=== PATIENT | female | born 1935 | race Caucasian/White ===

== ENCOUNTER → 2016-08-24 | Outpatient (CLI) | payer BC ==
[2016-08-24 13:45] LABS: BLOOD UREA NITROGEN 24 mg/dl (7-18); BUN/CREATININE RATIO 30.1 (10-20); CALCIUM 9.2 mg/dl (8.5-10.1); CARBON DIOXIDE 26 mmol/L (21-32); CHLORIDE 110 mmol/L (98-107); CREATININE 0.79 mg/dl (0.60-1.20); GLUCOSE 133 mg/dl (70-99); POTASSIUM 3.8 mmol/L (3.5-5.1); SODIUM 143 mmol/L (136-145)
[2016-08-24 14:04] LABS: RATIO 10.9 mcg/mg (0-30.0)
[2016-08-24 14:24] LABS: ESTIMATED AVERAGE GLUCOSE 131 mg/dl; HA1C FLAG Normal (Normal)
== END | disposition home or self-care (01) ==
LOC: C.LABPVFM 10:02
PROVIDERS: ATTEND Internal Medicine
DX: E11.9 Type 2 diabetes mellitus without complications (principal)

== ENCOUNTER → 2016-12-20 | Outpatient (CLI) | payer BC ==
[2016-12-20 13:11] LABS: ESTIMATED AVERAGE GLUCOSE 143 mg/dl; HA1C FLAG Normal (Normal)
[2016-12-20 13:19] LABS: ALT/SGPT 26 U/L (12-78); AST/SGOT 25 U/L (15-37); BLOOD UREA NITROGEN 22 mg/dl (7-18); BUN/CREATININE RATIO 24.1 (10-20); CALCIUM 9.5 mg/dl (8.5-10.1); CARBON DIOXIDE 27 mmol/L (21-32); CHLORIDE 108 mmol/L (98-107); CHOLESTEROL 225 mg/dl (0-200); CREATININE 0.92 mg/dl (0.60-1.20); GLUCOSE 120 mg/dl (70-99); POTASSIUM 4.1 mmol/L (3.5-5.1); SODIUM 142 mmol/L (136-145); TRIGLYCERIDES 89 mg/dl (0-150); VERY LOW DENSITY LIPOPROT CALC 18 mg/dl
[2016-12-20 13:22] LABS: CHOLESTEROL/HDL RATIO 2.4; HDL CHOLESTEROL 92 mg/dl; LDL CHOLESTEROL CALCULATED 115 mg/dl
== END | disposition home or self-care (01) ==
LOC: C.LABPVFM 09:23
PROVIDERS: ATTEND Internal Medicine
DX: E55.9 Vitamin D deficiency, unspecified (principal); E78.5 Hyperlipidemia, unspecified; E11.9 Type 2 diabetes mellitus without complications

== ENCOUNTER → 2017-01-22 | Outpatient (CLI) | payer BC ==
--- NOTE | 2017-01-22 10:25 | DIAGNOSTIC IMAGING REPORT ---
ULTRASOUND RIGHT UPPER QUADRANT ABDOMEN CLINICAL HISTORY: Epigastric abdominal pain. Bloating. COMPARISON STUDY: Abdominal ultrasound dated 05/26/2015. TECHNIQUE: Real-time, grayscale, and color flow sonography of the right upper quadrant of the abdomen was performed. Images are reviewed in the transverse and longitudinal planes. FINDINGS: Liver: The liver is normal in size and echotexture. There is no intrahepatic biliary ductal dilatation. The main portal vein is patent. Gallbladder: There are numerous calcified gallstones. There is no gallbladder wall thickening or pericholecystic fluid. A sonographic Mcelroy's sign is reportedly absent. The common bile duct measures up to 0.4 cm in diameter. Pancreas: Visualized portions of the pancreatic head and body are normal in appearance. The splenic vein is patent. Right kidney: Survey images of the right kidney demonstrate normal size and echotexture. There is no hydronephrosis. Ascites: None. IMPRESSION: Cholelithiasis without sonographic evidence of acute cholecystitis. Electronically signed by: Bo Das M.D. 01/22/2017 10:23 AM Dictated Date/Time: 01/22/2017 10:22 AM
== END | disposition home or self-care (01) ==
LOC: C.ULTR 09:04
PROVIDERS: ATTEND Internal Medicine
DX: R14.0 Abdominal distension (gaseous) (principal); R10.13 Epigastric pain

== ENCOUNTER → 2017-04-26 | Outpatient (CLI) | payer BC ==
[2017-04-26 12:28] LABS: MEAN CELL VOLUME 91.7 fL (80-100); MEAN CORPUSCULAR HEMOGLOBIN 30.4 pg (25-34); MEAN CORPUSCULAR HGB CONC 33.2 g/dl (32-36); PLATELET COUNT 165 K/uL (130-400); WHITE BLOOD COUNT 5.62 K/uL (4.8-10.8)
[2017-04-26 13:46] LABS: ESTIMATED AVERAGE GLUCOSE 137 mg/dl; HA1C FLAG Normal (Normal)
[2017-04-26 13:51] LABS: BLOOD UREA NITROGEN 19 mg/dl (7-18); BUN/CREATININE RATIO 21.6 (10-20); CALCIUM 9.2 mg/dl (8.5-10.1); CARBON DIOXIDE 25 mmol/L (21-32); CHLORIDE 106 mmol/L (98-107); CREATININE 0.87 mg/dl (0.60-1.20); GLUCOSE 130 mg/dl (70-99); POTASSIUM 4.2 mmol/L (3.5-5.1); SODIUM 140 mmol/L (136-145)
== END | disposition home or self-care (01) ==
LOC: C.LABPVFM 09:29
PROVIDERS: ATTEND Internal Medicine
DX: E11.9 Type 2 diabetes mellitus without complications (principal); K44.9 Diaphragmatic hernia without obstruction or gangrene

== ENCOUNTER → 2017-08-24 | Outpatient (CLI) | payer BC ==
[2017-08-24 12:48] LABS: ALT/SGPT 29 U/L (12-78); AST/SGOT 27 U/L (15-37); BLOOD UREA NITROGEN 17 mg/dl (7-18); CALCIUM 9.3 mg/dl (8.5-10.1); CARBON DIOXIDE 27 mmol/L (21-32); CREATININE 0.92 mg/dl (0.60-1.20); GLUCOSE 120 mg/dl (70-99); POTASSIUM 3.6 mmol/L (3.5-5.1); SODIUM 140 mmol/L (136-145)
[2017-08-24 12:51] LABS: CHOLESTEROL 245 mg/dl (0-200); LDL CHOLESTEROL CALCULATED 126 mg/dl
== END | disposition home or self-care (01) ==
LOC: C.LABPVFM 10:23
PROVIDERS: ATTEND Internal Medicine
DX: E11.9 Type 2 diabetes mellitus without complications (principal); E55.9 Vitamin D deficiency, unspecified; E78.5 Hyperlipidemia, unspecified

== ENCOUNTER 2022-01-24 13:17 | Inpatient (IN) ==
[2022-01-24] MEDS ORDERED: SODIUM CHLORIDE 0.9% 1000ML 1,000 ML IV SCH (13:53)
--- NOTE | 2022-01-24 14:07 | Emergency Department Note ---
Impression & Plan CVA (cerebral vascular accident), Atrial fibrillation, Hypomagnesemia, Rhabdomyolysis, Elevated troponin, Orbital floor fracture, Maxillary sinus fracture, Multiple fractures of ribs of right side ED Provider Note NAME: REDDY RIVAS AGE: 86 SEX: F ARRIVES VIA: Ambulance INFORMANT: Patient's Daughter ED PROVIDER(S): Anthony Lomeli MD CHIEF COMPLAINT: Stroke symptoms, Trauma. PLAN: Disposition: Admit MEDICAL DECISION MAKING: The patient is a pleasant 86-year-old woman with a past medical history of diabetes, osteoporosis, hyperlipidemia who presents to the emergency department via EMS after friends had found her in the home having suffered a fall and noted to have inability to speak and right facial droop with numerous contusions of her face and extremities. The patient's daughter arrived to the bedside and describes that she had last spoken to her mother Sunday and was attempting to call her this morning but she was not answering and so asked friends to go check on her. They were unable to open the door and went to her bedroom window and after knocking to awake the patient she was able to make it to the window to unlock it where she was then found. Her daughter reports that she did have a fall last week where she fell onto her left hand and hip. She was able to ambulate with a cane afterwards and so did not seek medical attention but had noted that movement of her left leg was impaired from baseline. On arrival to the emergency department the patient is awake and appears to follow most commands but is unclear if she understands others. The patient arrived to emergency department afebrile with heart in the 100s and blood pressure 140s/90s with O2 saturation 98% on room air. She has resolving ecchymosis of the right periorbital region without ocular proptosis. Pupils are equal and reactive. She has a noticeable right lower facial droop. She has overt expressive aphasia with only garbled speech. She does follow commands to attempt to raise extremities though appears to have difficulty raising all extremities equally. Ecchymosis of the right shoulder with mild tenderness of the proximal upper arm. There is no midline CTL spine tenderness to palpation or step-offs. Attempting to communicate with the patient with yes or no questions it did seem that she indicated that she fell Sunday. Given her last known well was Sunday with possible symptom onset Sunday no indication for stroke alert however her evaluation was expedited with CT imaging. EKG demonstrates atrial fibrillation, suspected new onset, no overt acute ischemia. CXR with vascular congestion without focal infiltrates. WBC, H/H and platelets within normal limits. Chemistry without metabolic acidosis. BUN/creatinine> 30 consistent with the patient's clinically dry appearance. Lactic acid 1.8, within normal limits. Magnesium 1.6 with repletion provided. Total bilirubin 2.1 with direct bilirubin 0.3, nonspecific. AST 51 and LFTs otherwise unremarkable. CPK 1500. Initial high-sensitivity troponin 345 nonspecific. UA without convincing evidence of infection. COVID- 19 RNA, NAAT test was negative. CT head and CTA head and neck were performed and demonstrates moderate stenosis of the M2 segment of the left MCA. Old small bilateral cerebellar lacunar infarcts noted. CT of the face shows extensive facial fractures including the right superior, lateral and inferior orbital rangel with orbital floor fracture of 3 mm of depression without extraocular muscle entrapment. Additional fractures of anterior, posterior and medial rangel of the right maxillary sinus with moderate layering hemorrhage within the right maxillary sinus. Acute nondisplaced fracture of the right zygomatic arch. CT of the chest demonstrates mildly displaced fracture of the right third rib. Pelvis additionally shows right anterior third through fifth rib fractures. Given extensive facial fractures prophylactic antibiotics/IV Unasyn administered. Case was discussed with Dr. Burnett, [facility] hospitalist, who will evaluate the patient for admission. Triage Nursing notes reviewed and agree them. Prior medical records reviewed Vital Signs: reviewed and remarkable for no significant abnormalities Differential diagnosis: Infection, dehydration, metabolic abnormality, hypo/hyperglycemia, electrolyte disturbance, anemia, hypoxia, cardiac sources, intracerebral event, toxicologic, neurologic, as well as other pathologies. ER treatment provided: See below. Diagnostics interpreted by me: ECG: Atrial fibrillation, 110 bpm, LVH, no overt ST elevation, QTc 430, QRS 86. Cardiac Monitoring: An order for continuous cardiac monitoring was placed and demonstrated Atrial fibrillation, 110 bpm, no ectopy. Laboratory studies: See below Imaging studies: See below Consultation(s): Case was discussed with Dr. Burnett, [facility] hospitalist, who will evaluate the patient for admission. HPI: The patient is a pleasant 86-year-old woman with a past medical history of diabetes, osteoporosis, hyperlipidemia who presents to the emergency department via EMS after friends had found her in the home having suffered a fall and noted to have inability to speak and right facial droop with numerous contusions of her face and extremities. The patient's daughter arrived to the bedside and describes that she had last spoken to her mother Sunday afternoon and was attempting to call her this morning but she was not answering and so asked friends to go check on her. They were unable to open the door and went to her bedroom window and after knocking to awake the patient she was able to make it to the window to unlock it where she was then found. Her daughter reports that she did have a fall last week where she fell onto her left hand and hip. She was able to ambulate with a cane afterwards and so did not seek medical attention but had noted that movement of her left leg was impaired from baseline. On arrival to the emergency department the patient is awake and appears to follow most commands but is unclear if she understands others. ROS: See above HPI for pertinent positives & negatives. A total of 10 systems reviewed and were otherwise negative. VITALS:See Below PHYSICAL EXAMINATION: GENERAL: Awake, alert, uncomfortable-appearing, in no distress HENT: Normocephalic,resolving ecchymosis of the right periorbital region without ocular proptosis. Oropharynx unremarkable. EYES: Normal conjunctiva. Sclera non-icteric. NECK: Supple. No nuchal rigidity. FROM. No JVD. RESPIRATORY: Clear to auscultation. CARDIAC: Tachycardic rate, irregular rhythm. Extremities warm and well perfused. Pulses equal. ABDOMEN: Soft, non-distended. No tenderness to palpation. No rebound or guarding. No masses. RECTAL: Deferred. MUSCULOSKELETAL: Chest examination reveals no tenderness. The back is symmetrical on inspection without obvious abnormality. There is no CVA tenderness to palpation. No joint edema. LOWER EXTREMITIES: Calves are equal size bilaterally and non-tender. Ecchymosis of the right shoulder with mild tenderness of the proximal upper arm. There is no midline CTL spine tenderness to palpation or step-offs. NEURO: Pupils are equal and reactive. She has a noticeable right lower facial droop. She has overt expressive aphasia with only garbled speech. She does follow commands to attempt to raise extremities though appears to have dif ficulty raising all extremities equally. SKIN: No rash or jaundice noted. ED COURSE: Critical Care: I have personally spent greater than 35 minutes of critical care time in the direct management of this patient. This includes bedside care, interpretation of diagnostic studies, and testing, discussion with consultants, patient, and family members, and other required patient management activities. This 35 minutes is in excess of all separately billable procedures. Anthony Lomeli MD Past Med/Surg History Medical History Acquired deviated nasal septum Atrial fibrillation Cerebral atherosclerosis Diabetes mellitus Hiatal hernia Hyperlipidemia Osteoporosis Urinary incontinence Vertebral artery stenosis Vitamin D deficiency Surgical History History of dilation and curettage Hx of cataract surgery Family History Unknown Gastric cancer Son Hodgkin's lymphoma Mother History of malignant neoplasm Father History of malignant neoplasm Other Cancer Denies family history of Ovarian cancer Prostate cancer Myocardial infarction Breast cancer Lung cancer Colorectal cancer Stroke Social History Smoking Status: Never smoker Second Hand Exposure: No; Do You Dip or Chew Tobacco: No; Hx Alcohol Use: No Hx Substance Use: No Preferred Language: Belarusian Communication Ability: Impaired Visual Impairment: No Limitations Hearing Ability: Hard of Hearing Event Marketing Specialist Required: No Beliefs That Will Affect Care: None marital status: / Current Living Situation: Alone current occupational status: retired Other Information That Helps Us Care for You: No Feels Safe at Home: Yes Safety Concerns: Feels Safe At This Time Childhood Exposure to Second-Hand Smoke: No Physical Activity Frequency: Does not Exercise Seatbelt Use: sometimes Assistive Devices: Cane, Denture - Upper and Hearing Aid - Bilateral Allergies Allergies Allergy/AdvReac Type Severity Reaction Status Date / Time No Known Drug Allergies Allergy Verified 01/24/22 15:42 Home Meds Home Medications Medication Instructions Recorded Confirmed calcium carbonate 600 mg-vitamin 1 tab PO BID 01/14/19 01/24/22 D3 10 mcg (400 unit) tablet (Calcium 600 + D(3)) cholecalciferol (vitamin D3) 25 3,000 units PO DAILY 01/14/19 01/24/22 mcg (1,000 unit) capsule cyanocobalamin (vitamin B-12) 100 100 mcg PO DAILY 01/14/19 01/24/22 mcg tablet multivitamin,tx-minerals 1 tab PO DAILY 01/14/19 01/24/22 Previous Rx's Medication Instructions Recorded glimepiride 1 mg tablet 1 mg PO BID #180 tabs 12/22/21 Results & Data (ED) Vital Signs Vital Signs - 24 hr 01/24/22 13:31 01/24/22 14:08 01/24/22 14:08 Temperature 36.8 C Temperature Source Oral Pulse Rate 104 H Pulse Rate [Apical] 104 H Pulse Rhythm Regular Pulse Rhythm [Apical] Irregular Pulse Strength Normal Respiratory Rate 18 18 Respiratory Effort / Characteristics Non-Labored Spontaneous Non-Labored Respiratory Depth Normal Normal Respiratory Pattern Regular Blood Pressure 142/93 H Blood Pressure [Right Arm] 137/85 Blood Pressure Mean 109 Blood Pressure Mean [Right Arm] 102 Blood Pressure Position Lying Pulse Oximetry 98 96 96 Oxygen Delivery Method Room Air Room Air Room Air Sepsis Recent Fever Within 48 Hours No Sepsis New/Unexplained Change in Mental Status N/A Sepsis Action Taken by Nursing No Action Required 01/24/22 14:11 01/24/22 14:20 01/24/22 14:45 Temperature Temperature Source Pulse Rate 113 H 109 H Pulse Rate [Apical] Pulse Rhythm Pulse Rhythm [Apical] Pulse Strength Respiratory Rate 30 H 21 Respiratory Effort / Characteristics Respiratory Depth Respiratory Pattern Blood Pressure 142/90 H Blood Pressure [Right Arm] Blood Pressure Mean 107 Blood Pressure Mean [Right Arm] Blood Pressure Position Pulse Oximetry Oxygen Delivery Method Sepsis Recent Fever Within 48 Hours Sepsis New/Unexplained Change in Mental Status Sepsis Action Taken by Nursing 01/24/22 14:45 01/24/22 14:50 01/24/22 15:00 Temperature Temperature Source Pulse Rate 110 H 100 H Pulse Rate [Apical] Pulse Rhythm Pulse Rhythm [Apical] Pulse Strength Respiratory Rate 22 Respiratory Effort / Characteristics Respiratory Depth Respiratory Pattern Blood Pressure 139/80 Blood Pressure [Right Arm] Blood Pressure Mean 99 Blood Pressure Mean [Right Arm] Blood Pressure Position Pulse Oximetry Oxygen Delivery Method Sepsis Recent Fever Within 48 Hours Sepsis New/Unexplained Change in Mental Status Sepsis Action Taken by Nursing 01/24/22 15:00 01/24/22 15:10 01/24/22 15:20 Temperature Temperature Source Pulse Rate 104 H 100 H 106 H Pulse Rate [Apical] Pulse Rhythm Pulse Rhythm [Apical] Pulse Strength Respiratory Rate 15 19 16 Respiratory Effort / Characteristics Respiratory Depth Respiratory Pattern Blood Pressure Blood Pressure [Right Arm] Blood Pressure Mean Blood Pressure Mean [Right Arm] Blood Pressure Position Pulse Oximetry Oxygen Delivery Method Sepsis Recent Fever Within 48 Hours Sepsis New/Unexplained Change in Mental Status Sepsis Action Taken by Nursing 01/24/22 15:30 01/24/22 15:30 01/24/22 15:40 Temperature Temperature Source Pulse Rate 98 H 108 H Pulse Rate [Apical] Pulse Rhythm Pulse Rhythm [Apical] Pulse Strength Respiratory Rate 19 25 H Respiratory Effort / Characteristics Respiratory Depth Respiratory Pattern Blood Pressure 129/60 Blood Pressure [Right Arm] Blood Pressure Mean 83 Blood Pressure Mean [Right Arm] Blood Pressure Position Pulse Oximetry Oxygen Delivery Method Sepsis Recent Fever Within 48 Hours Sepsis New/Unexplained Change in Mental Status Sepsis Action Taken by Nursing 01/24/22 15:50 01/24/22 16:00 01/24/22 16:10 Temperature Temperature Source Pulse Rate 108 H 113 H 101 H Pulse Rate [Apical] Pulse Rhythm Pulse Rhythm [Apical] Pulse Strength Respiratory Rate 17 16 23 Respiratory Effort / Characteristics Respiratory Depth Respiratory Pattern Blood Pressure Blood Pressure [Right Arm] Blood Pressure Mean Blood Pressure Mean [Right Arm] Blood Pressure Position Pulse Oximetry Oxygen Delivery Method Sepsis Recent Fever Within 48 Hours Sepsis New/Unexplained Change in Mental Status Sepsis Action Taken by Nursing Laboratory Data Attestation: I reviewed the patient's lab results. Result diagrams: 01/24/22 13:52 01/24/22 13:52 Lab Results 01/24/22 01/24/22 01/24/22 Range/Units 13:52 13:52 13:52 WBC 9.42 (4.8-10.8) K/ul RBC 4.19 (3.93-5.22) M/uL Hgb 12.3 (12.0-16.0) g/dl POC Hgb (12.0-16.0) g/dl Hct 36.9 (34.1-44.9) % POC Hct (37-47) % MCV 88.1 (80.0-100.0) fL MCH 29.4 (25.0-34.0) pg MCHC 33.3 (32.0-36.0) g/dL RDW Std Deviation 42.2 (36.4-46.3) fL RDW Coeff of Paco 13.2 (11.5-14.5) % Plt Count 150 (130-400) K/uL MPV 9.7 (9.4-12.3) fL Immature Gran % (Auto) 0.4 % Neut % (Auto) 82.3 % Lymph % (Auto) 9.1 % [place] % (Auto) 8.1 % Eos % (Auto) 0.0 % Baso % (Auto) 0.1 % Neut # (Auto) 7.75 H (1.4-6.5) K/uL Lymph # (Auto) 0.86 L (1.2-3.4) K/uL [place] # (Auto) 0.76 (0.24-0.82) K/uL Eos # (Auto) 0.00 (0-0.50) K/uL Baso # (Auto) 0.01 (0-0.2) K/uL Immature Gran # (Auto) 0.04 H (0.00-0.02) K/uL PT 11.5 (9.0-12.0) Seconds INR 1.1 (0.9-1.1) APTT 22.5 (21.0-31.0) Seconds PTT Ratio 0.8 POC Sodium (135-144) mmol/L Sodium 139 (136-145) mmol/L POC Potassium (3.3-5.0) mmol/L Potassium 3.5 (3.5-5.1) mmol/L POC Chloride (101-112) mmol/L Chloride 103 (98-107) mmol/L Carbon Dioxide 26 (21-32) mmol/L POC Total CO2 (24-31) mmol/L Anion Gap 10 (3-11) POC Anion Gap (16-25) mmol/L POC BUN (7-18) mg/dl BUN 19 (6-23) mg/dl Creatinine 0.54 L (0.6-1.2) mg/dl POC Creatinine (0.6-1.3) mg/dl Est Cr Clr Drug Dosing 62.2 ml/min Est GFR ( Amer) 97.6 ml/min Est GFR (Non-Af Amer) 84.3 ml/min BUN/Creatinine Ratio 35.2 H (10-20) Glucose 142 H (70-99(Fasting)) mg/dl POC Glucose (other) (70-99) mg/dl Lactate (0.4-2.0) mmol/L Calcium 9.7 (8.5-10.1) mg/dl POC Ioniz Calcium Hailee (1.12-1.32) mmol/l Phosphorus (2.5-4.9) mg/dl Magnesium 1.6 L (1.7-2.4) mg/dl Total Bilirubin 2.1 H (0.2-1.0) mg/dl Direct Bilirubin (0-0.2) mg/dl AST 51 H (13-39) U/L ALT 18 (7-52) U/L Alkaline Phosphatase 57 (34-104) U/L Total Creatine Kinase (26-192) U/L Troponin I High Sens 345.4 H* (0-14) pg/ml Total Protein 7.3 (6.0-8.3) gm/dl Albumin 4.1 (3.4-5.0) gm/dl Globulin 3.2 (2.5-4.0) gm/dl Albumin/Globulin Ratio 1.3 (0.9-2) SARS-CoV-2, RNA, NAAT (NEGATIVE) Blood Type Antibody Screen 01/24/22 01/24/22 01/24/22 Range/Units 13:52 13:52 14:00 WBC (4.8-10.8) K/ul RBC (3.93-5.22) M/uL Hgb (12.0-16.0) g/dl POC Hgb 12.2 (12.0-16.0) g/dl Hct (34.1-44.9) % POC Hct 36 L (37-47) % MCV (80.0-100.0) fL MCH (25.0-34.0) pg MCHC (32.0-36.0) g/dL RDW Std Deviation (36.4-46.3) fL RDW Coeff of Paco (11.5-14.5) % Plt Count (130-400) K/uL MPV (9.4-12.3) fL Immature Gran % (Auto) % Neut % (Auto) % Lymph % (Auto) % [place] % (Auto) % Eos % (Auto) % Baso % (Auto) % Neut # (Auto) (1.4-6.5) K/uL Lymph # (Auto) (1.2-3.4) K/uL [place] # (Auto) (0.24-0.82) K/uL Eos # (Auto) (0-0.50) K/uL Baso # (Auto) (0-0.2) K/uL Immature Gran # (Auto) (0.00-0.02) K/uL PT (9.0-12.0) Seconds INR (0.9-1.1) APTT (21.0-31.0) Seconds PTT Ratio POC Sodium 141 (135-144) mmol/L Sodium (136-145) mmol/L POC Potassium 3.5 (3.3-5.0) mmol/L Potassium (3.5-5.1) mmol/L POC Chloride 103 (101-112) mmol/L Chloride (98-107) mmol/L Carbon Dioxide (21-32) mmol/L POC Total CO2 27 (24-31) mmol/L Anion Gap (3-11) POC Anion Gap 15.0 L (16-25) mmol/L POC BUN 21 H (7-18) mg/dl BUN (6-23) mg/dl Creatinine (0.6-1.2) mg/dl POC Creatinine 0.5 L (0.6-1.3) mg/dl Est Cr Clr Drug Dosing ml/min Est GFR ( Amer) ml/min Est GFR (Non-Af Amer) ml/min BUN/Creatinine Ratio (10-20) Glucose (70-99(Fasting)) mg/dl POC Glucose (other) 148 H (70-99) mg/dl Lactate (0.4-2.0) mmol/L Calcium (8.5-10.1) mg/dl POC Ioniz Calcium Hailee 1.20 (1.12-1.32) mmol/l Phosphorus 2.4 L (2.5-4.9) mg/dl Magnesium (1.7-2.4) mg/dl Total Bilirubin (0.2-1.0) mg/dl Direct Bilirubin 0.3 H (0-0.2) mg/dl AST (13-39) U/L ALT (7-52) U/L Alkaline Phosphatase (34-104) U/L Total Creatine Kinase 1510 H (26-192) U/L Troponin I High Sens (0-14) pg/ml Total Protein (6.0-8.3) gm/dl Albumin (3.4-5.0) gm/dl Globulin (2.5-4.0) gm/dl Albumin/Globulin Ratio (0.9-2) SARS-CoV-2, RNA, NAAT (NEGATIVE) Blood Type Antibody Screen 01/24/22 01/24/22 01/24/22 Range/Units 14:05 14:05 14:05 WBC (4.8-10.8) K/ul RBC (3.93-5.22) M/uL Hgb (12.0-16.0) g/dl POC Hgb (12.0-16.0) g/dl Hct (34.1-44.9) % POC Hct (37-47) % MCV (80.0-100.0) fL MCH (25.0-34.0) pg MCHC (32.0-36.0) g/dL RDW Std Deviation (36.4-46.3) fL RDW Coeff of Paco (11.5-14.5) % Plt Count (130-400) K/uL MPV (9.4-12.3) fL Immature Gran % (Auto) % Neut % (Auto) % Lymph % (Auto) % [place] % (Auto) % Eos % (Auto) % Baso % (Auto) % Neut # (Auto) (1.4-6.5) K/uL Lymph # (Auto) (1.2-3.4) K/uL [place] # (Auto) (0.24-0.82) K/uL Eos # (Auto) (0-0.50) K/uL Baso # (Auto) (0-0.2) K/uL Immature Gran # (Auto) (0.00-0.02) K/uL PT (9.0-12.0) Seconds INR (0.9-1.1) APTT (21.0-31.0) Seconds PTT Ratio POC Sodium (135-144) mmol/L Sodium (136-145) mmol/L POC Potassium (3.3-5.0) mmol/L Potassium (3.5-5.1) mmol/L POC Chloride (101-112) mmol/L Chloride (98-107) mmol/L Carbon Dioxide (21-32) mmol/L POC Total CO2 (24-31) mmol/L Anion Gap (3-11) POC Anion Gap (16-25) mmol/L POC BUN (7-18) mg/dl BUN (6-23) mg/dl Creatinine (0.6-1.2) mg/dl POC Creatinine (0.6-1.3) mg/dl Est Cr Clr Drug Dosing ml/min Est GFR ( Amer) ml/min Est GFR (Non-Af Amer) ml/min BUN/Creatinine Ratio (10-20) Glucose (70-99(Fasting)) mg/dl POC Glucose (other) (70-99) mg/dl Lactate 1.8 (0.4-2.0) mmol/L Calcium (8.5-10.1) mg/dl POC Ioniz Calcium Hailee (1.12-1.32) mmol/l Phosphorus (2.5-4.9) mg/dl Magnesium (1.7-2.4) mg/dl Total Bilirubin (0.2-1.0) mg/dl Direct Bilirubin (0-0.2) mg/dl AST (13-39) U/L ALT (7-52) U/L Alkaline Phosphatase (34-104) U/L Total Creatine Kinase (26-192) U/L Troponin I High Sens (0-14) pg/ml Total Protein (6.0-8.3) gm/dl Albumin (3.4-5.0) gm/dl Globulin (2.5-4.0) gm/dl Albumin/Globulin Ratio (0.9-2) SARS-CoV-2, RNA, NAAT NEGATIVE (NEGATIVE) Blood Type A Positive Antibody Screen NEGATIVE Administered Medications Sodium Chloride (Nss 1000ml) 1,000 mls @ 100 mls/hr IV .Q10H MENDY Stop: 01/25/22 17:13 Last Admin: 01/24/22 21:44 Dose: 100 mls/hr Documented By: GEORGETTE Insulin Aspart (Insulin Aspart Per Unit) 0 units SC ACHS MENDY Stop: 02/23/22 21:13 Last Admin: 01/24/22 22:03 Dose: Not Given Documented By: GEORGETTE Discontinued Medications Gadobutrol (Gadobutrol 65ml Vial) 6 ml IV ONCE ONE Stop: 01/24/22 19:33 Last Admin: 01/24/22 19:33 Dose: 6 ml Documented By: AF Sodium Chloride (Nss 1000ml) 1,000 mls @ 999 mls/hr IV .Q1H1M MENDY Stop: 01/24/22 14:53 Last Infusion: 01/24/22 18:22 Dose: 0 mls/hr Documented By: Admin: 01/24/22 15:51 Dose: 999 mls/hr Documented By: PEARL Magnesium Sulfate/Dextrose (Magnesium Sulfate / D5w) 1 gm in 100 mls @ 100 mls/hr IV Q1H MENDY Stop: 01/24/22 17:16 Last Infusion: 01/24/22 21:27 Dose: 0 mls/hr Documented By: Admin: 01/24/22 18:13 Dose: 100 mls/hr Documented By: Infusion: 01/24/22 18:10 Dose: 100 mls/hr Documented By: Admin: 01/24/22 17:10 Dose: 100 mls/hr Documented By: PEARL Sodium Chloride (Nss 1000ml) 1,000 mls @ 999 mls/hr IV .Q1H1M ONE Stop: 01/24/22 16:17 Last Infusion: 01/24/22 18:20 Dose: 0 mls/hr Documented By: Admin: 01/24/22 17:11 Dose: 999 mls/hr Documented By: PEARL Ampicillin Sodium/Sulbactam Sodium 3,000 mg/ Sodium Chloride 108 mls @ 200 mls/hr IV NOW STA; Protocol Stop: 01/24/22 16:29 Last Infusion: 01/24/22 21:28 Dose: 0 mls/hr Documented By: Admin: 01/24/22 18:13 Dose: 200 mls/hr Documented By: TYSON Acetaminophen (Ofirmev) 1,000 mg in 100 mls @ 400 mls/hr IV NOW STA Stop: 01/24/22 16:12 Last Infusion: 01/24/22 18:20 Dose: 0 mls/hr Documented By: Admin: 01/24/22 17:11 Dose: 400 mls/hr Documented By: PEARL Ioversol (Optiray 300 500ml) 120 ml IV ONCE ONE Stop: 01/24/22 14:41 Last Admin: 01/24/22 14:40 Dose: 120 ml Documented By: GEMINI Lidocaine (Lidocaine 5% 1 Patch) 1 patch TD NOW STA Stop: 01/24/22 16:09 Last Admin: 01/24/22 18:12 Dose: 1 patch Documented By: TW Miscellaneous (Remove Lidoderm Patch) 1 each N/A DAILY@2100 MENDY Stop: 02/23/22 20:59 Last Admin: 01/24/22 22:03 Dose: 1 each Documented By: GEORGETTE Imaging Data Radiologist's Impression: Abdomen/Pelvis CT 01/24/22 13:[address] WITH IV CONTRAST CT DOSE: HISTORY: Generalized abdominal pain. Fall. TECHNIQUE: Multiaxial CT images of the abdomen and pelvis were performed following the use of intravenous contrast. A dose lowering technique was utilized adhering to the principles of ALARA. COMPARISON STUDY: Abdomen and pelvis CT 02/11/2020. FINDINGS: Please refer to the same day chest CT for further evaluation of the lung bases. No pneumoperitoneum. No pneumatosis. Partially visualized nondisplaced right anterior third through fifth rib fractures. The heart is enlarged. There is a large hiatus hernia containing the majority the stomach. Small fat-containing bilateral inguinal hernias. Trace pelvic free fluid. The bladder, uterus, bilateral adnexa are unremarkable. No pelvic lymphadenopathy. Mild hepatic steatosis. The gallbladder, pancreas, spleen, and adrenal glands are unremarkable. There are few small bilateral renal hypodense lesions, unchanged. These likely represent cysts. No hydronephrosis. The main portal vein is patent. No retroperitoneal lymphadenopathy or hematoma. Colonic diverticulosis. No evidence for acute diverticulitis. No bowel wall thickening or obstruction. Normal appendix. IMPRESSION: 1. Right anterior third through fifth rib fractures. 2. Otherwise, no acute traumatic process within the abdomen or pelvis. 3. Large hiatus hernia, unchanged. 4. Colonic diverticulosis. No evidence for acute diverticulitis. ACT 112: Negative or not required by law. Electronically signed by: Ronan Simmons M.D. 01/24/2022 3:[address] 01/24/22 13:49 CT OF THE CHEST WITH IV CONTRAST CLINICAL HISTORY: Chest pain following fall. COMPARISON STUDY: Chest radiograph performed earlier today. TECHNIQUE: Following IV administration of 120 mL of Optiray, helical axial images of the chest were obtained. Sagittal and coronal reconstructions were viewed as well as maximal intensity projections on an independent 3-D workstation. Automated exposure control was utilized for the study. A dose lowering technique was utilized adhering to the principles of ALARA. FINDINGS: There is no evidence for traumatic injury to the thoracic aorta. Moderate cardiomegaly is noted. There is no mediastinal hematoma. A hiatal hernia with partially intrathoracic stomach is noted. Lungs are suboptimally assessed due to respiratory motion. Groundglass opacities favor atelectasis. There is no pulmonary contusion. No consolidation to suggest pneumonia. There is a calcified granuloma within the right middle lobe. Note is made of a mildly displaced fracture of the anterior right third rib which is likely acute. There is no pneumothorax or pleural effusion. No acute thoracic spine fractures are present. Abdomen and pelvis CT will be reported separately. IMPRESSION: 1. Mildly displaced fracture of the anterior right third rib which is likely a cute. No pneumothorax. 2. No additional acute traumatic findings within the chest. 3. Cardiomegaly. 4. Hiatal hernia with partially intrathoracic stomach. ACT 112: Negative or not required by law. Electronically signed by: Randy Montemayor M.D. 01/24/2022 2:58 PM Chest X-Ray 01/24/22 13:49 XR chest 1V portable CLINICAL HISTORY: Stroke Like Symptoms. COMPARISON STUDY: No previous studies for comparison. FINDINGS: There is no pneumothorax or pleural effusion. Cardiomegaly is noted. There is pulmonary vascular congestion. There is no consolidation to suggest pneumonia. A large hiatal hernia is noted. IMPRESSION: 1. Cardiomegaly with pulmonary vascular congestion. 2. Hiatal hernia. ACT 112: Negative or not required by law. Electronically signed by: Randy Montemayor M.D. 01/24/2022 2:[address] 01/24/22 13:[address] DOSE: HISTORY: Right-sided facial droop. Stroke Like Symptoms TECHNIQUE: Multiaxial CT images of the head were performed without the use of intravenous contrast. Automated exposure control was utilized for this study. A dose lowering technique was utilized adhering to the principles of ALARA. Comparison: None. Findings: Hemorrhage within the right maxillary sinus. There is right periorbital/facial soft tissue swelling. Mildly displaced right zygomatic omaxillary complex fracture which is better appreciated on the same day maxillofacial CT. Subtle asymmetric lucency within the left frontal bone is noted. This is of doubtful clinical significance. The mastoid air cells are clear. Mild motion artifact. The ventricles and sulci demonstrate mild age-r elated involutional changes. Periventricular white matter hypodensity likely represents microvascular ischemic change. There is no mass, hematoma, midline shift, acute infarct. There are old small bilateral cerebellar lacunar infarcts noted. Impression: 1. No acute intracranial abnormality. 2. Right periorbital/facial soft tissue swelling. 3. Please refer to same day maxillofacial CT for further evaluation of the right facial fractures. ACT 112: Negative or not required by law. Electronically signed by: Ronan Simmons M.D. 01/24/2022 3:05 PM Head CTA 01/24/22 13:49 CT ANGIOGRAM OF THE BRAIN CLINICAL HISTORY: Strokelike symptoms. COMPARISON STUDY: Unenhanced CT of the brain performed concurrently on 01/24/2022. TECHNIQUE: Following the IV administration of 120 cc of Optiray 300, CT angiogram of the brain was performed from the skull base to the vertex. Images are reviewed in the axial, sagittal, and coronal planes. 3-D MIPS images are created and assessed. IV contrast was administered without complication. A dose lowering technique was utilized adhering to the principles of ALARA. FINDINGS: Brain parenchyma: There is age-related involutional change noting mild subcortical and periventricular microangiopathic disease. There is no evidence of hemorrhage, mass effect, or acute territorial ischemia noting angiographic phase technique. There is no evidence of enhancing mass lesion on the angiogram phase images. No extra-axial fluid collection is seen. Khan-white matter differentiation is preserved. Ventricles, sulci, and cisterns: Prominent secondary to involutional change. CT angiogram of the brain: There is atherosclerotic calcification of the cavernous carotid arteries. The internal carotid arteries are widely patent, as are the anterior and middle cerebral arteries. The basilar artery is diminutive and there are large bilateral posterior communicating arteries. The vertebrobasilar system and posterior cerebral arteries are widely patent. The le ft vertebral artery is dominant. There is moderate stenosis of the M2 segment of the left middle cerebral artery. This is best seen on coronal dimension #29. No aneurysm or focal vessel cutoff is identified throughout the intracranial circulation. Dural sinuses: Clear as visualized. Orbits: There is a nondepressed fracture of the right orbital floor. There is also fracture involving the lateral wall of the right orbit. The left bony orbit appears intact. The orbital contents are normal as visualized noting bilateral ocular lens implants. Sinuses and mastoids: There is right periorbital soft tissue contusion. There are fractures involving the anterior and posterior wall of the right maxillary antrum with layering blood within the sinus. The remaining paranasal sinuses are clear. The mastoid air cells are well pneumatized. Calvarium: The skeletal structures are osteopenic. No depressed calvarial fracture is seen. There is a nondisplaced fracture of the right zygomatic arch. IMPRESSION: 1. There is no evidence of hemorrhage, mass effect, or acute territorial ischemia noting angiographic phase technique. 2. There is moderate stenosis of the M2 segment of the left middle cerebral artery. 3. Otherwise unremarkable CT angiogram of the brain. 4. Fractures of the right orbit and right maxillary sinus as above. See report of facial bone CT performed concurrently for detailed facial bone findings. 5. Nondisplaced fracture of the right zygomatic arch. ACT 112: Negative or not required by law. Electronically signed by: Bo Das M.D. 01/24/2022 3:15 PM Neck CTA 01/24/22 13:49 CT ANGIOGRAPHY OF THE NECK WITH CONTRAST CLINICAL HISTORY: Stroke Like Symptoms COMPARISON STUDY: No previous studies for comparison. Technique: CT angiography of the carotid and vertebral arteries was obtained using Optiray and 3D reconstruction on an independent workstation. NASCET criteria was utilized. Automated exposure control was utilized for the study. A dose lowering technique was utilized adhering to the principles of ALARA. Findings: No acute cervical spine fracture is noted. There is severe multilevel facet arthrosis within the cervical spine. Moderate multilevel disc space narrowing and osteophytosis is noted. Degenerative changes at the C1-C2 articulation are noted. There is no prevertebral edema. Central canal and neural foramen are suboptimally assessed given CT technique. There is severe stenosis at the origin of the right vertebral artery. No additional stenoses within the bilateral vertebral, common carotid or cervical internal carotid arteries are present. CTA of the head will be reported separately. There is mild plaque within the bilateral proximal internal carotid arteries. There is no aneurysm within the neck. IMPRESSION: 1. Mild plaque within the proximal bilateral internal carotid arteries without stenosis. No stenosis within the bilateral common carotid or cervical internal carotid arteries. 2. 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 3. No acute cervical spine fracture. ACT 112: Negative or not required by law. Electronically signed by: Randy Montemayor M.D. 01/24/2022 3:03 PM Shoulder X-Ray 01/24/22 13:49 LEFT SHOULDER 3 VIEWS CLINICAL HISTORY: Fall. Left shoulder pain. FINDINGS: 3 views of the left shoulder are obtained. No prior studies are available for comparison at the time of dictation. The skeletal structures are osteopenic. There is no radiographic evidence of fracture or dislocation. Minimal degenerative change is seen at the glenohumeral and acromio clavicular joints. The overlying soft tissues are within normal limits. The left lung parenchyma is clear as visualized. IMPRESSION: No acute bony abnormality is identified. Electronically signed by: Bo Das M.D. 01/24/2022 2:33 PM Shoulder X-Ray 01/24/22 13:49 XR shoulder RT min 2V routine CLINICAL HISTORY: Right shoulder pain following fall. COMPARISON: None FINDINGS: Alignment of the right shoulder is anatomic. There is no acute fracture. Moderate osteoarthritis of the right acromioclavicular joint is noted. IMPRESSION: No acute fracture or dislocation within the right shoulder. ACT 112: Negative or not required by law. Electronically signed by: Randy Montemayor M.D. 01/24/2022 2:[address] 01/24/22 13:53 CT facial bones wo con CLINICAL HISTORY: 86 years-old Female presenting with pain fall. Acute facial trauma status post fall COMPARISON STUDY: CT head of same day TECHNIQUE: High-resolution CT scan of the facial bones is performed. Images are reviewed in the axial, sagittal, and coronal planes. IV contrast was not administered for this examination. A dose lowering technique was utilized adhering to the principles of ALARA. CT DOSE: 2460.55 mGy.cm FINDINGS: Age-related involutional changes with chronic microvascular ischemic disease. No acute process of the imaged intracranial structures. Prior bilateral lens repair. Small right lateral cheek and right periorbital contusions. Atherosclerosis of the carotid bulbs. Degenerative changes of the cervical spine. There is a moderate amount of layering hemorrhage within the right maxillary sinus. The mastoid air cells and middle ear cavities are clear. Mild mucosal thickening of the right ethmoid air cells. Acute comminuted mildly displaced fractures are noted involving the lateral aspect of the right superior bony orbits, lateral and inferior orbital rangel. No definite medial orbital wall fracture identified. The orbital floor fracture demonstrates 3 mm of depression without extraocular muscular entrapment. Additional acute fractures are noted involving the anterior, posterior and medial rangel of the right maxilla with acute nondisplaced fracture of the right zygomatic arch. The pterygoid plates appear intact. No acute nasal bone fracture. Rightward bowing and spurring of the nasal septum. No acute mandibular fracture identified. IMPRESSION: 1. Acute fractures of the right superior, lateral and inferior orbital rangel as above. 2. Acute fractures of the anterior, posterior and medial rangel of the right maxillary sinus with moderate layering hemorrhage within the right maxillary sinus. 3. Acute nondisplaced fracture of the right zygomatic arch. 4. Right periorbital and lateral right cheek contusions. ACT 112: Negative or not required by law. The above report was generated using voice recognition software. It may contain grammatical, syntax or spelling errors. Electronically signed by: Basim Bai M.D. 01/24/2022 3:05 PM Discharge Plan Visit Data Chief Complaint: Neuro Symptoms/Deficit ED Provider: Anthony Lomeli Discharge Problem: CVA (cerebral vascular accident), Atrial fibrillation, Hypomagnesemia, Rhabdomyolysis, Elevated troponin, Orbital floor fracture, Maxillary sinus fracture, Multiple fractures of ribs of right side Patient Disposition: Admitted As Inpatient Discharge Instructions Interventions: ED Discharge Assessment Last Done: 01/24/22 20:56
[2022-01-24 14:13] LABS: iSTAT Creatinine 0.5 mg/dl (0.6-1.3); iSTAT Hemoglobin 12.2 g/dl (12.0-16.0); iSTAT Ionized Calcium 1.2 mmol/l (1.12-1.32); iSTAT Potassium 3.5 mmol/L (3.3-5.0)
[2022-01-24 14:22] LABS: Basophils # (auto) 0.01 K/uL (0-0.2); Basophils % (auto) 0.1 %; Hematocrit (blood only) 36.9 % (34.1-44.9); Hemoglobin 12.3 g/dl (12.0-16.0); Immature Granulocytes # (auto) 0.04 K/uL (0.00-0.02); Immature Granulocytes % (auto) 0.4 %; Lymphocytes # (auto) 0.86 K/uL (1.2-3.4); Lymphocytes % (auto) 9.1 %; Mean Corpuscular Hemoglobin 29.4 pg (25.0-34.0); Mean Corpuscular Hgb Conc 33.3 g/dL (32.0-36.0); Mean Corpuscular Volume 88.1 fL (80.0-100.0); Mean Platelet Volume 9.7 fL (9.4-12.3); Monocytes # (auto) 0.76 K/uL (0.24-0.82); Monocytes % (auto) 8.1 %; Neutrophils # (auto) 7.75 K/uL (1.4-6.5); Neutrophils % (auto) 82.3 %; Platelet Count 150 K/uL (130-400); RDW Coefficient of Variation 13.2 % (11.5-14.5); RDW Standard Deviation 42.2 fL (36.4-46.3); Red Blood Count 4.19 M/uL (3.93-5.22); White Blood Count 9.42 K/ul (4.8-10.8)
[2022-01-24 14:35] LABS: INR 1.1 (0.9-1.1); Partial Thromboplastin Ratio 0.8; Partial Thromboplastin Time 22.5 Seconds (21.0-31.0); Prothrombin Time 11.5 Seconds (9.0-12.0)
--- NOTE | 2022-01-24 14:35 | XRay Report ---
XR chest 1V portable CLINICAL HISTORY: Stroke Like Symptoms. COMPARISON STUDY: No previous studies for comparison. FINDINGS: There is no pneumothorax or pleural effusion. Cardiomegaly is noted. There is pulmonary vas cular congestion. There is no consolidation to suggest pneumonia. A large hiatal hernia is noted. IMPRESSION: 1. Cardiomegaly with pulmonary vascular congestion. 2. Hiatal hernia. ACT 112: Negative or not required by law. Electronically signed by: Randy Montemayor M.D. 01/24/2022 2:34 PM
--- NOTE | 2022-01-24 14:35 | XRay Report ---
LEFT SHOULDER 3 VIEWS CLINICAL HISTORY: Fall. Left shoulder pain. FINDINGS: 3 views of the left shoulder are obtained. No prior studies are available for comparison at the time of dictation. The skeletal structures are osteopenic. There is no radiographic evidence of fracture or dislocation. Minimal degenerative change is seen at the glenohumeral and acromio clavicul ar joints. The overlying soft tissues are within normal limits. The left lung parenchyma is clear as visualized. IMPRESSION: No acute bony abnormality is identified. Electronically signed by: Bo Das M.D. 01/24/2022 2:33 PM
[2022-01-24] MEDS ORDERED: OPTIRAY 300 500mL IV ONE (14:40)
--- NOTE | 2022-01-24 14:43 | XRay Report ---
XR shoulder RT min 2V routine CLINICAL HISTORY: Right shoulder pain following fall. COMPARISON: None FINDINGS: Alignment of the right shoulder is anatomic. There is no acute fracture. Moderate osteoart hritis of the right acromioclavicular joint is noted. IMPRESSION: No acute fracture or dislocation within the right shoulder. ACT 112: Negative or not required by law. Electronically signed by: Randy Montemayor M.D. 01/24/2022 2:42 PM
[2022-01-24 14:45] LABS: Phosphorus 2.4 mg/dl (2.5-4.9)
[2022-01-24 14:48] LABS: Albumin Globulin Ratio 1.3 (0.9-2); Albumin Level 4.1 gm/dl (3.4-5.0); BUN Creatinine Ratio 35.2 (10-20); Bilirubin,Total 2.1 mg/dl (0.2-1.0); Calcium 9.7 mg/dl (8.5-10.1); Creatinine Clr Calc Pharmacy 62.2 ml/min; Est GFR (African American) 97.6 ml/min; Est GFR (Non-African American) 84.3 ml/min; Globulin 3.2 gm/dl (2.5-4.0); Magnesium 1.6 mg/dl (1.7-2.4); Potassium 3.5 mmol/L (3.5-5.1); Total Protein 7.3 gm/dl (6.0-8.3)
[2022-01-24 14:57] LABS: Troponin I High Sensitivity 345.4 pg/ml (0-14)
--- NOTE | 2022-01-24 14:59 | CT Scan Report ---
CT OF THE CHEST WITH IV CONTRAST CLINICAL HISTORY: Chest pain following fall. COMPARISON STUDY: Chest radiograph performed earlier today. TECHNIQUE: Following IV administration of 120 mL of Optiray, helical axial images of the chest were obtained. Sagittal and coronal reconstructions were viewed as well as maximal intensity projections on an independent 3-D workstation. Automated exposure control was utilized for the study. A dose lo wering technique was utilized adhering to the principles of ALARA. FINDINGS: There is no evidence for traumatic injury to the thoracic aorta. Moderate cardiomegaly is noted. There is no mediastinal hematoma. A hiatal hernia with partially intrathoracic stomach is note d. Lungs are suboptimally assessed due to respiratory motion. Groundglass opacities favor atelectasis . There is no pulmonary contusion. No consolidation to suggest pneumonia. There is a calcified granul halle within the right middle lobe. Note is made of a mildly displaced fracture of the anterior right t hird rib which is likely acute. There is no pneumothorax or pleural effusion. No acute thoracic spine fractures are present. Abdomen and pelvis CT will be reported separately. IMPRESSION: 1. Mildly displaced fracture of the anterior right third rib which is likely acute. No pneumothorax. 2. No additional acute traumatic findings within the chest. 3. Cardiomegaly. 4. Hiatal hernia with partially intrathoracic stomach. ACT 112: Negative or not required by law. Electronically signed by: Randy Montemayor M.D. 01/24/2022 2:58 PM
--- NOTE | 2022-01-24 15:05 | CT Scan Report ---
CT ANGIOGRAPHY OF THE NECK WITH CONTRAST CLINICAL HISTORY: Stroke Like Symptoms COMPARISON STUDY: No previous studies for comparison. Technique: CT angiography of the carotid and vertebral arteries was obtained using Optiray and 3D rec onstruction on an independent workstation. NASCET criteria was utilized. Automated exposure control was utilized for the study. A dose lowering technique was utilized adhering to the principles of ALA RA. Findings: No acute cervical spine fracture is noted. There is severe multilevel facet arthrosis withi n the cervical spine. Moderate multilevel disc space narrowing and osteophytosis is noted. Degenerati ve changes at the C1-C2 articulation are noted. There is no prevertebral edema. Central canal and anna ral foramen are suboptimally assessed given CT technique. There is severe stenosis at the origin of t he right vertebral artery. No additional stenoses within the bilateral vertebral, common carotid or c ervical internal carotid arteries are present. CTA of the head will be reported separately. There is mild plaque within the bilateral proximal internal carotid arteries. There is no aneurysm within the neck. IMPRESSION: 1. Mild plaque within the proximal bilateral internal carotid arteries without stenosis. No stenosis within the bilateral common carotid or cervical internal carotid arteries. 2. 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 3. No acute cervical spine fracture. ACT 112: Negative or not required by law. Electronically signed by: Randy Montemayor M.D. 01/24/2022 3:03 PM
--- NOTE | 2022-01-24 15:06 | CT Scan Report ---
HEAD CT NONCONTRAST CT DOSE: HISTORY: Right-sided facial droop. Stroke Like Symptoms TECHNIQUE: Multiaxial CT images of the head were performed without the use of intravenous contrast. A utomated exposure control was utilized for this study. A dose lowering technique was utilized adheri ng to the principles of ALARA. Comparison: None. Findings: Hemorrhage within the right maxillary sinus. There is right periorbital/facial soft tissue swelling. Mildly displaced right zygomaticomaxillary complex fracture which is better appreciated on the same day maxillofacial CT. Subtle asymmetric lucency within the left frontal bone is noted. This is of doubtful clinical significance. The mastoid air cells are clear. Mild motion artifact. The vent ricles and sulci demonstrate mild age-related involutional changes. Periventricular white matter hypo density likely represents microvascular ischemic change. There is no mass, hematoma, midline shift, a cute infarct. There are old small bilateral cerebellar lacunar infarcts noted. Impression: 1. No acute intracranial abnormality. 2. Right periorbital/facial soft tissue swelling. 3. Please refer to same day maxillofacial CT for further evaluation of the right facial fractures. ACT 112: Negative or not required by law. Electronically signed by: Ronan Simmons M.D. 01/24/2022 3:05 PM
--- NOTE | 2022-01-24 15:07 | CT Scan Report ---
CT facial bones wo con CLINICAL HISTORY: 86 years-old Female presenting with pain fall. Acute facial trauma status post fall COMPARISON STUDY: CT head of same day TECHNIQUE: High-resolution CT scan of the facial bones is performed. Images are reviewed in the axia l, sagittal, and coronal planes. IV contrast was not administered for this examination. A dose lower ing technique was utilized adhering to the principles of ALARA. CT DOSE: 2460.55 mGy.cm FINDINGS: Age-related involutional changes with chronic microvascular ischemic disease. No acute process of the imaged intracranial structures. Prior bilateral lens repair. Small right lateral cheek and right per iorbital contusions. Atherosclerosis of the carotid bulbs. Degenerative changes of the cervical spine . There is a moderate amount of layering hemorrhage within the right maxillary sinus. The mastoid air c ells and middle ear cavities are clear. Mild mucosal thickening of the right ethmoid air cells. Acute comminuted mildly displaced fractures are noted involving the lateral aspect of the right superior b lisa orbits, lateral and inferior orbital rangel. No definite medial orbital wall fracture identified. The orbital floor fracture demonstrates 3 mm of depression without extraocular muscular entrapment. A dditional acute fractures are noted involving the anterior, posterior and medial rangel of the right m axilla with acute nondisplaced fracture of the right zygomatic arch. The pterygoid plates appear inta ct. No acute nasal bone fracture. Rightward bowing and spurring of the nasal septum. No acute mandibu lar fracture identified. IMPRESSION: 1. Acute fractures of the right superior, lateral and inferior orbital rangel as above. 2. Acute fractures of the anterior, posterior and medial rangel of the right maxillary sinus with mode rate layering hemorrhage within the right maxillary sinus. 3. Acute nondisplaced fracture of the right zygomatic arch. 4. Right periorbital and lateral right cheek contusions. ACT 112: Negative or not required by law. The above report was generated using voice recognition software. It may contain grammatical, syntax o r spelling errors. Electronically signed by: Basim Bai M.D. 01/24/2022 3:05 PM
--- NOTE | 2022-01-24 15:07 | Electrocardiogram Report ---
Test Reason : Blood Pressure : / mmHG Vent. Rate : 110 BPM Atrial Rate : 326 BPM P-R Int : 000 ms QRS Dur : 086 ms QT Int : 318 ms P-R-T Axes : 000 -28 072 degrees QTc Int : 430 ms Poor data quality, interpretation may be adversely affected Atrial fibrillation Poor R wave progression, consider anterior PA vs. lead placement vs. LVH Abnormal ECG No previous ECGs available Confirmed by Yo Sebastian ([id number]) on 01/24/2022 3:06:48 PM Referred By: REFERRED SELF Confirmed By:Yo Sebastian
--- NOTE | 2022-01-24 15:16 | CT Scan Report ---
CT ANGIOGRAM OF THE BRAIN CLINICAL HISTORY: Strokelike symptoms. COMPARISON STUDY: Unenhanced CT of the brain performed concurrently on 01/24/2022. TECHNIQUE: Following the IV administration of 120 cc of Optiray 300, CT angiogram of the brain was pe rformed from the skull base to the vertex. Images are reviewed in the axial, sagittal, and coronal pl anes. 3-D MIPS images are created and assessed. IV contrast was administered without complication. A dose lowering technique was utilized adhering to the principles of ALARA. FINDINGS: Brain parenchyma: There is age-related involutional change noting mild subcortical and periventricula r microangiopathic disease. There is no evidence of hemorrhage, mass effect, or acute territorial isc hemia noting angiographic phase technique. There is no evidence of enhancing mass lesion on the angio gram phase images. No extra-axial fluid collection is seen. Khan-white matter differentiation is pres erved. Ventricles, sulci, and cisterns: Prominent secondary to involutional change. CT angiogram of the brain: There is atherosclerotic calcification of the cavernous carotid arteries. The internal carotid arteries are widely patent, as are the anterior and middle cerebral arteries. Th e basilar artery is diminutive and there are large bilateral posterior communicating arteries. The ve rtebrobasilar system and posterior cerebral arteries are widely patent. The left vertebral artery is dominant. There is moderate stenosis of the M2 segment of the left middle cerebral artery. This is be st seen on coronal dimension #29. No aneurysm or focal vessel cutoff is identified throughout the int racranial circulation. Dural sinuses: Clear as visualized. Orbits: There is a nondepressed fracture of the right orbital floor. There is also fracture involving the lateral wall of the right orbit. The left bony orbit appears intact. The orbital contents are no rmal as visualized noting bilateral ocular lens implants. Sinuses and mastoids: There is right periorbital soft tissue contusion. There are fractures involving the anterior and posterior wall of the right maxillary antrum with layering blood within the sinus. The remaining paranasal sinuses are clear. The mastoid air cells are well pneumatized. Calvarium: The skeletal structures are osteopenic. No depressed calvarial fracture is seen. There is a nondisplaced fracture of the right zygomatic arch. IMPRESSION: 1. There is no evidence of hemorrhage, mass effect, or acute territorial ischemia noting angiographic phase technique. 2. There is moderate stenosis of the M2 segment of the left middle cerebral artery. 3. Otherwise unremarkable CT angiogram of the brain. 4. Fractures of the right orbit and right maxillary sinus as above. See report of facial bone CT perf ormed concurrently for detailed facial bone findings. 5. Nondisplaced fracture of the right zygomatic arch. ACT 112: Negative or not required by law. Electronically signed by: Bo Das M.D. 01/24/2022 3:15 PM
[2022-01-24] MEDS ORDERED: SODIUM CHLORIDE 0.9% 1000ML 1,000 ML IV ONE (15:17)
--- NOTE | 2022-01-24 15:28 | CT Scan Report ---
ABDOMEN AND PELVIS CT WITH IV CONTRAST CT DOSE: HISTORY: Generalized abdominal pain. Fall. TECHNIQUE: Multiaxial CT images of the abdomen and pelvis were performed following the use of intrave nous contrast. A dose lowering technique was utilized adhering to the principles of ALARA. COMPARISON STUDY: Abdomen and pelvis CT 02/11/2020. FINDINGS: Please refer to the same day chest CT for further evaluation of the lung bases. No pneumope ritoneum. No pneumatosis. Partially visualized nondisplaced right anterior third through fifth rib fr actures. The heart is enlarged. There is a large hiatus hernia containing the majority the stomach. S mall fat-containing bilateral inguinal hernias. Trace pelvic free fluid. The bladder, uterus, bilater al adnexa are unremarkable. No pelvic lymphadenopathy. Mild hepatic steatosis. The gallbladder, pancr eas, spleen, and adrenal glands are unremarkable. There are few small bilateral renal hypodense lesio ns, unchanged. These likely represent cysts. No hydronephrosis. The main portal vein is patent. No re troperitoneal lymphadenopathy or hematoma. Colonic diverticulosis. No evidence for acute diverticulit is. No bowel wall thickening or obstruction. Normal appendix. IMPRESSION: 1. Right anterior third through fifth rib fractures. 2. Otherwise, no acute traumatic process within the abdomen or pelvis. 3. Large hiatus hernia, unchanged. 4. Colonic diverticulosis. No evidence for acute diverticulitis. ACT 112: Negative or not required by law. Electronically signed by: Ronan Simmons M.D. 01/24/2022 3:26 PM
--- NOTE | 2022-01-24 15:53 | History & Physical Report ---
Date of Service January 24, 2022 Assessment & Plan (1) Stroke: Plan: Presents with right facial droop, dysarthria and expressive aphasia, right kriss- neglect and some mild right sided hemiparesis Well outside the window for thrombolytic therapy CT head nothing acute/subacute noted CTA head/neck with left MCA stenosis and right vertebral artery severe stenosis unrelated With new onset atrial fibrillation on exam CVA likely embolic from A-fib. Only risk factors otherwise for thrombotic stroke would be DMII, age, but does have cerebrovascular disease/stenosis -admit to PCU for tele monitoring -start heparin gtt for Afib and eventually convert to Eliquis -Neuro checks, Stroke scale -consult Neuro appreciated-d/w Dr. Perez on phone at time of admission -check brain MRI to confirm stroke -if stroke confirmed, start ASA 81mg daily as well-if remains NPO/fails dys phagia screen, will need to convert to MO ASA -Speech therapy consulted-with dysarthria, expressive aphasia--> keep NPO for now -PT/OT consults placed -check ECHO for thrombus -start high intensity statin, check lipid panel -check HgbA1C in AM -permissive HTN, will use low doses of IV lopressor only as needed for rapid afib (2) Atrial fibrillation: Plan: with rapid rates in 100-110s new onset check ECHO for EF, valvular disease monitor on tele hydrate with IVFs IV lopressor low dose as needed for rates > 120, but want permissive HTN -start heparin gtt and eventually convert to ELiquis once able to take po -Cardiology consult (3) Rhabdomyolysis: Plan: CK mildly elevated in 1000 range 2/2 fall and being down on ground for unknown length of time with bruising on right side of body mostly IVFs ordered x 2 L NS after 1 L NS given in ER follow CK in AM (4) Elevated troponin: Plan: likely demand ischemia or reactive to CVA trend troponin no chest pain, ECG with Afib and some subtle ST depressions lateral leads checking ECHO heparin gtt as above but do not suspect ACS (5) Hypomagnesemia: Plan: due to poor po intake, likely did not eat or drink x 1-2 days replace and check in AM (6) Hypophosphatemia: Plan: mildly low check in AM replace prn (7) Elevated LFTs: Plan: TBili mildly elevated, AST mildly elevated DBili essentially normal unclear cause but no abd pain or tenderness liver fatty on CT follow LFTs in AM, no further workup needed at this time (8) Extensive facial fractures: Plan: secondary to fall/trauma consulted OMFS Dr. Holliday-no surgery or treatment needed pain control as needed IV Unasyn for prophylaxis for sinus fractures with hemorrhage into maxillary sinus-convert to Augmentin once able to take po (9) Orbital floor fracture: Plan: no entrapment of EOMs no surgery needed (10) Maxillary sinus fracture: Plan: as above Unasyn for prophylaxis monitor while on heparin as there is hemorrhage in maxillary sinus (11) Vertebral artery stenosis: Plan: medical management with ASA, statin once can take po unrelated to current stroke but does have old cerebellar CVA on CT (12) Cerebral atherosclerosis: Plan: as above (13) Diabetes mellitus: Plan: mild, takes glimiperide as outpt hold home po meds SSI check A1C in AM (14) Hiatal hernia: Plan: no treatment needed (15) Vitamin D deficiency: Plan: hold home meds (16) Osteoporosis: Plan: noted Plan DVT prophylaxis-heparin gtt, SCDs Dispo-admit to PCU FULL CODE but family to look for her advanced directive as they are unsure what her wishes are and she is not able to comprehend the code discussion or express her wishes History of Present Illness Chief Complaint: Fall, stroke symptoms Primary Care Provider: Yo Garcia MD This patient is an 86-year-old female with history of DM2, hyperlipidemia, osteoporosis, vitamin D deficiency, who presents to the ER after being found down at home for over 24 hours most likely. She was last known well on Sunday afternoon but her family could not get a hold of her this morning. When her neighbors went to the house they were able to get in through the window and found her to have right facial droop, multiple contusions/bruises, and expressive aphasia. She apparently had a fall about a week prior but has been ambulating with a cane since then. Pt unable to speak clearly and is confused. Able to answer some simple questions. Can't remember when she fell. Does admit to pain in her face and has pain in ribs with being moved in bed. Family reports pt typically very independent; lives alone, weed whacks and mows her own yard. When they went in the house, it appeared she struggled with crawling or dragging herself from the bathroom to the bed and climbed into her bed. In the ER, she was found to have new onset atrial fibrillation on ECG, elevated CK at 1510, elevated troponin of 345, elevated bilirubin and AST, mildly low magnesium and phosphorus. Moore CT scans showed old cerebellar bilateral lacunar infarcts but nothing subacute or acute, CT angiogram head and neck with moderate stenosis of M2 segment of left MCA, severe stenosis at origin of right vertebral artery, no acute cervical spine facture; facial CT showed acute fractures of right superior, lateral, and inferior orbital rangel without extraocular muscle entrapment, acute fractures of anterior, posterior, and medial rangel of right maxillary sinus with moderate layering hemorrhage and right maxillary sinus, acute nondisplaced fracture right zygomatic arch, and contusions at the right periorbital lateral cheek. CT chest/abdomen/pelvis revealed right anterior acute third through fifth rib fractures, otherwise no pneumothorax or intra- abdominal trauma, also with hiatal hernia and partially intrathoracic stomach. In the ER, a stroke alert was not called as she was well outside of the target time for thrombolytics. She was given 2 L of normal saline and 2 g of IV magnesium. Hospitalist service was consulted for admission given likely new onset stroke, along with multiple facial and rib fractures although she is not requiring any pain control at this time. Also with new onset atrial fibrillation Allergies Allergy/AdvReac Type Severity Reaction Status Date / Time No Known Drug Allergies Allergy Verified 01/24/22 15:42 Home Medications Medication Instructions Recorded Confirmed Type calcium carbonate 600 mg-vitamin 1 tab PO BID 01/14/19 01/24/22 History D3 10 mcg (400 unit) tablet (Calcium 600 + D(3)) cholecalciferol (vitamin D3) 25 3,000 units PO DAILY 01/14/19 01/24/22 History mcg (1,000 unit) capsule cyanocobalamin (vitamin B-12) 100 100 mcg PO DAILY 01/14/19 01/24/22 History mcg tablet multivitamin,tx-minerals 1 tab PO DAILY 01/14/19 01/24/22 History glimepiride 1 mg tablet 1 mg PO BID #180 tabs 12/22/21 01/24/22 Rx Past Med/Surg History Medical History Acquired deviated nasal septum Atrial fibrillation Cerebral atherosclerosis Diabetes mellitus Hiatal hernia Hyperlipidemia Osteoporosis Urinary incontinence Vertebral artery stenosis Vitamin D deficiency Surgical History History of dilation and curettage Hx of cataract surgery Family History Unknown Gastric cancer Son Hodgkin's lymphoma Mother History of malignant neoplasm Father History of malignant neoplasm Other Cancer Denies family history of Ovarian cancer Prostate cancer Myocardial infarction Breast cancer Lung cancer Colorectal cancer Stroke Social History Smoking Status: Never smoker Second Hand Exposure: No; Do You Dip or Chew Tobacco: No; Hx Alcohol Use: No Hx Substance Use: No Preferred Language: Mauritanian Communication Ability: Impaired Visual Impairment: No Limitations Hearing Ability: Hard of Hearing Seismograph Recorder Required: No Beliefs That Will Affect Care: None marital status: / Current Living Situation: Alone current occupational status: retired Other Information That Helps Us Care for You: No Feels Safe at Home: Yes Safety Concerns: Feels Safe At This Time Childhood Exposure to Second-Hand Smoke: No Physical Activity Frequency: Does not Exercise Seatbelt Use: sometimes Assistive Devices: Cane, Denture - Upper and Hearing Aid - Bilateral Review of Systems Review of Systems: All systems reviewed & are unremarkable except as noted in HPI & below Physical Exam Constitutional: WD/WN, vitals as above Eyes: PERRL, conjunctivae normal, anicteric sclerae EOM intact bilaterally ENMT: external ear and nose normal, oropharynx normal Right periorbital edema, ecchymosis Neck: trachea midline, no thyromegaly Respiratory: normal respiratory effort, lungs clear to auscultation Cardiovascular: Rate/Rhythm: + tachycardic and + irregularly irregular Heart Sounds: no murmur Vessels: dorsalis pedis pulses present Extremities: no edema Chest (Breasts): Chest: normal inspection of chest Gastrointestinal (Abdomen): normal bowel sounds, soft, nontender, no hepat osplenomegaly Musculoskeletal: Extremities: extremities normal to inspection; no cyanosis and no clubbing Skin: no rashes, warm and dry + ecchymosis (rt shoulder,right hip,bilateral hands) Neurologic: awake and + confused Speech / Cognition: + abnormal speech (dysarthria) and + expressive aphasia Motor/Sensory: no tremor and no sensory deficit CN 2-12 intact except with right facial droop With some right sided neglect RUE and RLE with 4/5 strength Left side 5/5 strength throughout Psychiatric: Orientation: alert Lymphatic: no lymphedema Results & Data Results & Data ([facility]) Vital Signs (Past 12 Hours) Vital Signs Temp Pulse Pulse Resp BP BP Pulse Ox 01/24/22 14:08 104 H 18 137/85 96 01/24/22 14:08 96 01/24/22 13:31 36.8 C 104 H 18 142/93 H 98 O2 Del Method 01/24/22 14:08 Room Air 01/24/22 14:08 Room Air 01/24/22 13:31 Room Air Laboratory Results 01/24/22 01/24/22 01/24/22 Range/Units 14:05 14:05 14:05 WBC (4.8-10.8) K/ul RBC (3.93-5.22) M/uL Hgb (12.0-16.0) g/dl POC Hgb (12.0-16.0) g/dl Hct (34.1-44.9) % POC Hct (37-47) % MCV (80.0-100.0) fL MCH (25.0-34.0) pg MCHC (32.0-36.0) g/dL RDW Std Deviation (36.4-46.3) fL RDW Coeff of Paco (11.5-14.5) % Plt Count (130-400) K/uL MPV (9.4-12.3) fL Immature Gran % (Auto) % Neut % (Auto) % Lymph % (Auto) % Sumner % (Auto) % Eos % (Auto) % Baso % (Auto) % Neut # (Auto) (1.4-6.5) K/uL Lymph # (Auto) (1.2-3.4) K/uL Sumner # (Auto) (0.24-0.82) K/uL Eos # (Auto) (0-0.50) K/uL Baso # (Auto) (0-0.2) K/uL Immature Gran # (Auto) (0.00-0.02) K/uL PT (9.0-12.0) Seconds INR (0.9-1.1) APTT (21.0-31.0) Seconds PTT Ratio POC Sodium (135-144) mmol/L Sodium (136-145) mmol/L POC Potassium (3.3-5.0) mmol/L Potassium (3.5-5.1) mmol/L POC Chloride (101-112) mmol/L Chloride (98-107) mmol/L Carbon Dioxide (21-32) mmol/L POC Total CO2 (24-31) mmol/L Anion Gap (3-11) POC Anion Gap (16-25) mmol/L POC BUN (7-18) mg/dl BUN (6-23) mg/dl Creatinine (0.6-1.2) mg/dl POC Creatinine (0.6-1.3) mg/dl Est Cr Clr Drug Dosing ml/min Est GFR ( Amer) ml/min Est GFR (Non-Af Amer) ml/min BUN/Creatinine Ratio (10-20) Glucose (70-99(Fasting)) mg/dl POC Glucose (other) (70-99) mg/dl Lactate 1.8 (0.4-2.0) mmol/L Calcium (8.5-10.1) mg/dl POC Ioniz Calcium Hailee (1.12-1.32) mmol/l Phosphorus (2.5-4.9) mg/dl Magnesium (1.7-2.4) mg/dl Total Bilirubin (0.2-1.0) mg/dl AST (13-39) U/L ALT (7-52) U/L Alkaline Phosphatase (34-104) U/L Total Creatine Kinase (26-192) U/L Troponin I High Sens (0-14) pg/ml Total Protein (6.0-8.3) gm/dl Albumin (3.4-5.0) gm/dl Globulin (2.5-4.0) gm/dl Albumin/Globulin Ratio (0.9-2) SARS-CoV-2, RNA, NAAT NEGATIVE (NEGATIVE) Blood Type A Positive Antibody Screen NEGATIVE 01/24/22 01/24/22 01/24/22 Range/Units 14:00 13:52 13:52 WBC (4.8-10.8) K/ul RBC (3.93-5.22) M/uL Hgb (12.0-16.0) g/dl POC Hgb 12.2 (12.0-16.0) g/dl Hct (34.1-44.9) % POC Hct 36 L (37-47) % MCV (80.0-100.0) fL MCH (25.0-34.0) pg MCHC (32.0-36.0) g/dL RDW Std Deviation (36.4-46.3) fL RDW Coeff of Paco (11.5-14.5) % Plt Count (130-400) K/uL MPV (9.4-12.3) fL Immature Gran % (Auto) % Neut % (Auto) % Lymph % (Auto) % Sumner % (Auto) % Eos % (Auto) % Baso % (Auto) % Neut # (Auto) (1.4-6.5) K/uL Lymph # (Auto) (1.2-3.4) K/uL Sumner # (Auto) (0.24-0.82) K/uL Eos # (Auto) (0-0.50) K/uL Baso # (Auto) (0-0.2) K/uL Immature Gran # (Auto) (0.00-0.02) K/uL PT (9.0-12.0) Seconds INR (0.9-1.1) APTT (21.0-31.0) Seconds PTT Ratio POC Sodium 141 (135-144) mmol/L Sodium 139 (136-145) mmol/L POC Potassium 3.5 (3.3-5.0) mmol/L Potassium 3.5 (3.5-5.1) mmol/L POC Chloride 103 (101-112) mmol/L Chloride 103 (98-107) mmol/L Carbon Dioxide 26 (21-32) mmol/L POC Total CO2 27 (24-31) mmol/L Anion Gap 10 (3-11) POC Anion Gap 15.0 L (16-25) mmol/L POC BUN 21 H (7-18) mg/dl BUN 19 (6-23) mg/dl Creatinine 0.54 L (0.6-1.2) mg/dl POC Creatinine 0.5 L (0.6-1.3) mg/dl Est Cr Clr Drug Dosing 62.2 ml/min Est GFR ( Amer) 97.6 ml/min Est GFR (Non-Af Amer) 84.3 ml/min BUN/Creatinine Ratio 35.2 H (10-20) Glucose 142 H (70-99(Fasting)) mg/dl POC Glucose (other) 148 H (70-99) mg/dl Lactate (0.4-2.0) mmol/L Calcium 9.7 (8.5-10.1) mg/dl POC Ioniz Calcium Hailee 1.20 (1.12-1.32) mmol/l Phosphorus 2.4 L (2.5-4.9) mg/dl Magnesium 1.6 L (1.7-2.4) mg/dl Total Bilirubin 2.1 H (0.2-1.0) mg/dl AST 51 H (13-39) U/L ALT 18 (7-52) U/L Alkaline Phosphatase 57 (34-104) U/L Total Creatine Kinase 1510 H (26-192) U/L Troponin I High Sens 345.4 H* (0-14) pg/ml Total Protein 7.3 (6.0-8.3) gm/dl Albumin 4.1 (3.4-5.0) gm/dl Globulin 3.2 (2.5-4.0) gm/dl Albumin/Globulin Ratio 1.3 (0.9-2) SARS-CoV-2, RNA, NAAT (NEGATIVE) Blood Type Antibody Screen 01/24/22 01/24/22 Range/Units 13:52 13:52 WBC 9.42 (4.8-10.8) K/ul RBC 4.19 (3.93-5.22) M/uL Hgb 12.3 (12.0-16.0) g/dl POC Hgb (12.0-16.0) g/dl Hct 36.9 (34.1-44.9) % POC Hct (37-47) % MCV 88.1 (80.0-100.0) fL MCH 29.4 (25.0-34.0) pg MCHC 33.3 (32.0-36.0) g/dL RDW Std Deviation 42.2 (36.4-46.3) fL RDW Coeff of Paco 13.2 (11.5-14.5) % Plt Count 150 (130-400) K/uL MPV 9.7 (9.4-12.3) fL Immature Gran % (Auto) 0.4 % Neut % (Auto) 82.3 % Lymph % (Auto) 9.1 % Sumner % (Auto) 8.1 % Eos % (Auto) 0.0 % Baso % (Auto) 0.1 % Neut # (Auto) 7.75 H (1.4-6.5) K/uL Lymph # (Auto) 0.86 L (1.2-3.4) K/uL Sumner # (Auto) 0.76 (0.24-0.82) K/uL Eos # (Auto) 0.00 (0-0.50) K/uL Baso # (Auto) 0.01 (0-0.2) K/uL Immature Gran # (Auto) 0.04 H (0.00-0.02) K/uL PT 11.5 (9.0-12.0) Seconds INR 1.1 (0.9-1.1) APTT 22.5 (21.0-31.0) Seconds PTT Ratio 0.8 POC Sodium (135-144) mmol/L Sodium (136-145) mmol/L POC Potassium (3.3-5.0) mmol/L Potassium (3.5-5.1) mmol/L POC Chloride (101-112) mmol/L Chloride (98-107) mmol/L Carbon Dioxide (21-32) mmol/L POC Total CO2 (24-31) mmol/L Anion Gap (3-11) POC Anion Gap (16-25) mmol/L POC BUN (7-18) mg/dl BUN (6-23) mg/dl Creatinine (0.6-1.2) mg/dl POC Creatinine (0.6-1.3) mg/dl Est Cr Clr Drug Dosing ml/min Est GFR ( Amer) ml/min Est GFR (Non-Af Amer) ml/min BUN/Creatinine Ratio (10-20) Glucose (70-99(Fasting)) mg/dl POC Glucose (other) (70-99) mg/dl Lactate (0.4-2.0) mmol/L Calcium (8.5-10.1) mg/dl POC Ioniz Calcium Hailee (1.12-1.32) mmol/l Phosphorus (2.5-4.9) mg/dl Magnesium (1.7-2.4) mg/dl Total Bilirubin (0.2-1.0) mg/dl AST (13-39) U/L ALT (7-52) U/L Alkaline Phosphatase (34-104) U/L Total Creatine Kinase (26-192) U/L Troponin I High Sens (0-14) pg/ml Total Protein (6.0-8.3) gm/dl Albumin (3.4-5.0) gm/dl Globulin (2.5-4.0) gm/dl Albumin/Globulin Ratio (0.9-2) SARS-CoV-2, RNA, NAAT (NEGATIVE) Blood Type Antibody Screen Diagnostic Findings Abdomen/Pelvis CT 01/24/22 13:[address] WITH IV CONTRAST CT DOSE: HISTORY: Generalized abdominal pain. Fall. TECHNIQUE: Multiaxial CT images of the abdomen and pelvis were performed following the use of intravenous contrast. A dose lowering technique was utilized adhering to the principles of ALARA. COMPARISON STUDY: Abdomen and pelvis CT 02/11/2020. FINDINGS: Please refer to the same day chest CT for further evaluation of the lung bases. No pneumoperitoneum. No pneumatosis. Partially visualized nondisplaced right anterior third through fifth rib fractures. The heart is enlarged. There is a large hiatus hernia containing the majority the stomach. Small fat-containing bilateral inguinal hernias. Trace pelvic free fluid. The bladder, uterus, bilateral adnexa are unremarkable. No pelvic lymphadenopathy. Mild hepatic steatosis. The gallbladder, pancreas, spleen, and adrenal glands are unremarkable. There are few small bilateral renal hypodense lesions, unchanged. These likely represent cysts. No hydronephrosis. The main portal vein is patent. No retroperitoneal lymphadenopathy or hematoma. Colonic diverticulosis. No evidence for acute diverticulitis. No bowel wall thickening or obstruction. Normal appendix. IMPRESSION: 1. Right anterior third through fifth rib fractures. 2. Otherwise, no acute traumatic process within the abdomen or pelvis. 3. Large hiatus hernia, unchanged. 4. Colonic diverticulosis. No evidence for acute diverticulitis. ACT 112: Negative or not required by law. Electronically signed by: Rnoan Simmons M.D. 01/24/2022 3:[address] 01/24/22 13:49 CT OF THE CHEST WITH IV CONTRAST CLINICAL HISTORY: Chest pain following fall. COMPARISON STUDY: Chest radiograph performed earlier today. TECHNIQUE: Following IV administration of 120 mL of Optiray, helical axial images of the chest were obtained. Sagittal and coronal reconstructions were viewed as well as maximal intensity projections [facility] Automated exposure control was utilized for the study. A dose lowering technique was utilized adhering to the principles of ALARA. FINDINGS: There is no evidence for traumatic injury to the thoracic aorta. Moderate cardiomegaly is noted. There is no mediastinal hematoma. A hiatal hernia with partially intrathoracic stomach is noted. Lungs are suboptimally assessed due to respiratory motion. Groundglass opacities favor atelectasis. There is no pulmonary contusion. No consolidation to suggest pneumonia. There is a calcified granuloma within the right middle lobe. Note is made of a mildly displaced fracture of the anterior right third rib which is likely acute. There is no pneumothorax or pleural effusion. No acute thoracic spine fractures are present. Abdomen and pelvis CT will be reported separately. IMPRESSION: 1. Mildly displaced fracture of the anterior right third rib which is likely acute. No pneumothorax. 2. No additional acute traumatic findings within the chest. 3. Cardiomegaly. 4. Hiatal hernia with partially intrathoracic stomach. ACT 112: Negative or not required by law. Electronically signed by: Randy Montemayor M.D. 01/24/2022 2:58 PM Chest X-Ray 01/24/22 13:49 XR chest 1V portable CLINICAL HISTORY: Stroke Like Symptoms. COMPARISON STUDY: No previous studies for comparison. FINDINGS: There is no pneumothorax or pleural effusion. Cardiomegaly is noted. There is pulmonary vascular congestion. There is no consolidation to suggest pneumonia. A large hiatal hernia is noted. IMPRESSION: 1. Cardiomegaly with pulmonary vascular congestion. 2. Hiatal hernia. ACT 112: Negative or not required by law. Electronically signed by: Randy Montemayor M.D. 01/24/2022 2:[address] 01/24/22 13:[address] DOSE: HISTORY: Right-sided facial droop. Stroke Like Symptoms TECHNIQUE: Multiaxial CT images of the head were performed without the use of intravenous contrast. Automated exposure control was utilized for this study. A dose lowering technique was utilized adhering to the principles of ALARA. Comparison: None. Findings: Hemorrhage within the right maxillary sinus. There is right periorbital/facial soft tissue swelling. Mildly displaced right zygomaticomaxillary complex fracture which is better appreciated on the same day maxillofacial CT. Subtle asymmetric lucency within the left frontal bone is noted. This is of doubtful clinical significance. The mastoid air cells are clear. Mild motion artifact. The ventricles and sulci demonstrate mild age- related involutional changes. Periventricular white matter hypodensity likely represents microvascular ischemic change. There is no mass, hematoma, midline shift, acute infarct. There are old small bilateral cerebellar lacunar infarcts noted. Impression: 1. No acute intracranial abnormality. 2. Right periorbital/facial soft tissue swelling. 3. Please refer to same day maxillofacial CT for further evaluation of the right facial fractures. ACT 112: Negative or not required by law. Electronically signed by: Ronan Simmons M.D. 01/24/2022 3:05 PM Head CTA 01/24/22 13:49 CT ANGIOGRAM OF THE BRAIN CLINICAL HISTORY: Strokelike symptoms. COMPARISON STUDY: Unenhanced CT of the brain performed concurrently on 2021. TECHNIQUE: Following the IV administration of 120 cc of Optiray 300, CT angiogram of the brain was performed from the skull base to the vertex. Images are reviewed in the axial, sagittal, and coronal planes. 3-D MIPS images are created and assessed. IV contrast was administered without complication. A dose lowering technique was utilized adhering to the principles of ALARA. FINDINGS: Brain parenchyma: There is age-related involutional change noting mild subcortical and periventricular microangiopathic disease. There is no evidence of hemorrhage, mass effect, or acute territorial ischemia noting angiographic phase technique. There is no evidence of enhancing mass lesion on the angiogram phase images. No extra-axial fluid collection is seen. Khan-white matter differentiation is preserved. Ventricles, sulci, and cisterns: Prominent secondary to involutional change. CT angiogram of the brain: There is atherosclerotic calcification of the cavernous carotid arteries. The internal carotid arteries are widely patent, as are the anterior and middle cerebral arteries. The basilar artery is diminutive and there are large bilateral posterior communicating arteries. The verteb robasilar system and posterior cerebral arteries are widely patent. The left vertebral artery is dominant. There is moderate stenosis of the M2 segment of the left middle cerebral artery. This is best seen on coronal dimension #29. No aneurysm or focal vessel cutoff is identified throughout the intracranial circulation. Dural sinuses: Clear as visualized. Orbits: There is a nondepressed fracture of the right orbital floor. There is also fracture involving the lateral wall of the right orbit. The left bony orbit appears intact. The orbital contents are normal as visualized noting bilateral ocular lens implants. Sinuses and mastoids: There is right periorbital soft tissue contusion. There are fractures involving the anterior and posterior wall of the right maxillary antrum with layering blood within the sinus. The remaining paranasal sinuses are clear. The mastoid air cells are well pneumatized. Calvarium: The skeletal structures are osteopenic. No depressed calvarial fracture is seen. There is a nondisplaced fracture of the right zygomatic arch. IMPRESSION: 1. There is no evidence of hemorrhage, mass effect, or acute territorial ischemia noting angiographic phase technique. 2. There is moderate stenosis of the M2 segment of the left middle cerebral artery. 3. Otherwise unremarkable CT angiogram of the brain. 4. Fractures of the right orbit and right maxillary sinus as above. See report of facial bone CT performed concurrently for detailed facial bone findings. 5. Nondisplaced fracture of the right zygomatic arch. ACT 112: Negative or not required by law. Electronically signed by: Bo Das M.D. 01/24/2022 3:15 PM Neck CTA 01/24/22 13:49 CT ANGIOGRAPHY OF THE NECK WITH CONTRAST CLINICAL HISTORY: Stroke Like Symptoms COMPARISON STUDY: No previous studies for comparison. Technique: CT angiography of the carotid and vertebral arteries was obtained using Optiray and 3D reconstruction on an independent workstation. NASCET criteria was utilized. Automated exposure control was utilized for the study. A dose lowering technique was utilized adhering to the principles of ALARA. Findings: No acute cervical spine fracture is noted. There is severe multilevel facet arthrosis within the cervical spine. Moderate multilevel disc space narrowing and osteophytosis is noted. Degenerative changes at the C1-C2 articulation are noted. There is no prevertebral edema. Central canal and neural foramen are suboptimally assessed given CT technique. There is severe stenosis at the origin of the right vertebral artery. No additional stenoses within the bilateral vertebral, common carotid or cervical internal carotid arteries are present. CTA of the head will be reported separately. There is mild plaque within the bilateral proximal internal carotid arteries. There is no aneurysm within the neck. IMPRESSION: 1. Mild plaque within the proximal bilateral internal carotid arteries without stenosis. No stenosis within the bilateral common carotid or cervical internal carotid arteries. 2. 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 3. No acute cervical spine fracture. ACT 112: Negative or not required by law. Electronically signed by: Randy Montemayor M.D. 01/24/2022 3:03 PM Shoulder X-Ray 01/24/22 13:49 LEFT SHOULDER 3 VIEWS CLINICAL HISTORY: Fall. Left shoulder pain. FINDINGS: 3 views of the left shoulder are obtained. No prior studies are available for comparison at the time of dictation. The skeletal structures are o steopenic. There is no radiographic evidence of fracture or dislocation. Minimal degenerative change is seen at the glenohumeral and acromio clavicular joints. The overlying soft tissues are within normal limits. The left lung parenchyma is clear as visualized. IMPRESSION: No acute bony abnormality is identified. Electronically signed by: Bo Das M.D. 01/24/2022 2:33 PM Shoulder X-Ray 01/24/22 13:49 XR shoulder RT min 2V routine CLINICAL HISTORY: Right shoulder pain following fall. COMPARISON: None FINDINGS: Alignment of the right shoulder is anatomic. There is no acute fracture. Moderate osteoarthritis of the right acromioclavicular joint is noted. IMPRESSION: No acute fracture or dislocation within the right shoulder. ACT 112: Negative or not required by law. Electronically signed by: Randy Montemayor M.D. 01/24/2022 2:[address] 01/24/22 13:53 CT facial bones wo con CLINICAL HISTORY: 86 years-old Female presenting with pain fall. Acute facial trauma status post fall COMPARISON STUDY: CT head of same day TECHNIQUE: High-resolution CT scan of the facial bones is performed. Images are reviewed in the axial, sagittal, and coronal planes. IV contrast was not administered for this examination. A dose lowering technique was utilized adhering to the principles of ALARA. CT DOSE: 2460.55 mGy.cm FINDINGS: Age-related involutional changes with chronic microvascular ischemic disease. No acute process of the imaged intracranial structures. Prior bilateral lens repair. Small right lateral cheek and right periorbital contusions. Atherosclerosis of the carotid bulbs. Degenerative changes of the cervical spine. There is a moderate amount of layering hemorrhage within the right maxillary sinus. The mastoid air cells and middle ear cavities are clear. Mild mucosal thickening of the right ethmoid air cells. Acute comminuted mildly displaced fractures are noted involving the lateral aspect of the right superior bony orbits, lateral and inferior orbital rangel. No definite medial orbital wall fracture identified. The orbital floor fracture demonstrates 3 mm of depression without extraocular muscular entrapment. Additional acute fractures are noted involving the anterior, posterior and medial rangel of the right maxilla with acute nondisplaced fracture of the right zygomatic arch. The pterygoid plates appear intact. No acute nasal bone fracture. Rightward bowing and spurring of the nasal septum. No acute mandibular fracture identified. IMPRESSION: 1. Acute fractures of the right superior, lateral and inferior orbital rangel as above. 2. Acute fractures of the anterior, posterior and medial rangel of the right maxillary sinus with moderate layering hemorrhage within the right maxillary sinus. 3. Acute nondisplaced fracture of the right zygomatic arch. 4. Right periorbital and lateral right cheek contusions. ACT 112: Negative or not required by law. The above report was generated using voice recognition software. It may contain grammatical, syntax or spelling errors. Electronically signed by: Basim Bai M.D. 01/24/2022 3:05 PM ECG Additional Comments: ECG on 01/24/2022 at 1401 with atrial fibrillation, rate 110, subtle ST depressions in lateral leads-no old ECGs to compare to Code Status & VTE Plan VTE Prophylaxis Plan VTE Prophylaxis will be ordered: Yes PG Care Time/CCT Total # of Minutes Spent Total Time Spent with Patient: Total time spent is greater than 50% in coordination of care (as documented) at patient's floor/unit and/or counseling patient: Coding Level of Care Code 23216 Initial Inpt Care Lvl 3 Diagnoses Stroke I63.9 Atrial fibrillation I48.91 Rhabdomyolysis M62.82 Elevated troponin R77.8 Hypomagnesemia E83.42 Hypophosphatemia E83.39 Elevated LFTs R79.89 Extensive facial fractures S02.92XA Orbital floor fracture S02.30XA Maxillary sinus fracture S02.401A Vertebral artery stenosis I65.09 Cerebral atherosclerosis I67.2 Diabetes mellitus E11.9 Hiatal hernia K44.9 Vitamin D deficiency E55.9 Osteoporosis M81.0
[2022-01-24] MEDS ORDERED: AMPICILLIN/SULBACTAM SOD 3,000 MG in 0.9 % SODIUM CHLORIDE 100 ML IV STA (15:57)
[2022-01-24] MEDS ORDERED: ACETAMINOPHEN 1,000 MG/100 ML VIAL IV STA (15:58)
[2022-01-24] MEDS ORDERED: LIDOCAINE 5% 1 PATCH TD STA (16:08)
[2022-01-24] MEDS: MAGNESIUM SULFATE / D5W 1 GM/100 ML BAG IV SCH ×2 (17:10→18:13)
[2022-01-24 18:29] LABS: Appearance Urine Clear (Clear); Bacteria Urine Automated Negative (Negative); Bilirubin Urine Negative (Negative); Blood Urine Trace (Negative); Cast Urine Automated 0 /lpf (0-5); Color Urine Yellow; Glucose Urine UA Negative (Negative); Ketones Urine 1+ (Negative); Leukocyte Esterase Urine Negative (Negative); Nitrite Urine Negative (Negative); Protein Urine Negative (Negative); RBC Urine Automated 0-4 /hpf (0-4); Specific Gravity Urine > 1.045 (1.000-1.030); Urobilinogen Urine Negative (Negative); pH Urine 5.5 (4.5-7.5)
[2022-01-24] MEDS ORDERED: GADOBUTROL 65ML VIAL IV ONE (19:32)
--- NOTE | 2022-01-24 20:06 | Magnetic Resonance Report ---
MR brain wo/w con HISTORY: 86 years-old Female CVA acute strokelike symptoms with right-sided facial droop COMPARISON: Head CT and CT maxillofacial studies of same day TECHNIQUE: Multiplanar multisequence MRI of the brain was obtained both with and without the use of 6 cc Gadavist FINDINGS: Mildly motion degraded exam. Degenerative changes of the imaged cervical spine. The midline fractures are otherwise unremarkable. There are several foci of subcentimeter restricted diffusion present wit hin the left frontal and parietal barger radiata extending into the external capsule and subcortical left temporoparietal lobes. The largest cortical/subcortical focus involves the left frontal lobe galo sure 1.2 cm on image 15. These findings demonstrate decreased signal on ADC map with mildly increased T2/FLAIR signal. No acute intracranial hemorrhage, midline shift, abnormal extra-axial collection, h ydrocephalus or intracranial mass. Involutional changes with moderate T2/FLAIR hyperintense foci thro ughout the white matter suggestive of chronic microvascular ischemic disease. Chronic left cerebellar lacunar infarct. Cerebral venous sinuses and major arterial flow voids are patent. Mastoid air cells are clear. Layeri ng hemorrhage noted within the right maxillary sinus. Right periorbital and facial contusions. Prior bilateral lens are.. Mild mucosal thickening of the ethmoid air cells and sphenoid sinuses. IMPRESSION: 1. Motion degraded exam. 2. Numerous mostly subcentimeter small acute infarcts are noted throughout the left MCA territory. 3. Involutional changes with chronic microvascular ischemic disease. 4. Layering hemorrhage within the right maxillary sinus. Acute facial bone fractures are discussed on the CT maxillofacial study of same day 5. Right periorbital and right facial contusions. ACT 112: Negative or not required by law. The above report was generated using voice recognition software. It may contain grammatical, syntax o r spelling errors. Electronically signed by: Basim Bai M.D. 01/24/2022 8:04 PM
[2022-01-24] MEDS ORDERED: CARBOHYDRATES FOR HYPOGLYCEMIA PO PRN (21:14)
[2022-01-24] MEDS ORDERED: ONDANSETRON INJ 2 MG/ML 2 ML VIAL IV PRN (21:14)
[2022-01-24] MEDS ORDERED: GLUCOSE 40% GEL 15 GM TUBE PO PRN (21:14)
[2022-01-24] MEDS ORDERED: DEXTROSE 50% 50 ML SYRINGE IV PRN (21:14)
[2022-01-24] MEDS ORDERED: GLUCOSE 10 TAB/TUBE PO PRN (21:14)
[2022-01-24] MEDS ORDERED: PHARMACIST DISCHARGE MED REC CONSULT PRN (21:14)
[2022-01-24] MEDS ORDERED: GLUCAGON FOR INJ 1 MG VIAL SQ PRN (21:14)
[2022-01-24] MEDS ORDERED: ACETAMINOPHEN 325 MG TAB PO PRN (21:14)
[2022-01-24] MEDS ORDERED: METOPROLOL TARTRATE 1 MG/ML VIAL IV PRN (21:43)
[2022-01-24] MEDS: SODIUM CHLORIDE 0.9% 1000ML 1,000 ML IV SCH (21:44)
[2022-01-24] MEDS: INSULIN ASPART PER UNIT SC SCH (22:03)
[2022-01-24] MEDS ORDERED: Heparin IV Adult Wt-Based Standard *NO* Bolus Protocol IV SCH (22:35)
[2022-01-24] MEDS ORDERED: ACETAMINOPHEN 1,000 MG/100 ML VIAL IV PRN (22:35)
[2022-01-25] MEDS: HEPARIN SODIUM/DEXTROSE 25,000 UNITS/500 ML BAG IV SCH (00:15)
[2022-01-25] MEDS: AMPICILLIN/SULBACTAM SOD 3,000 MG in 0.9 % SODIUM CHLORIDE 100 ML IV SCH ×4 (01:04→17:59)
[2022-01-25 01:15] LABS: Partial Thromboplastin Time 26.2 Seconds (21.0-31.0)
[2022-01-25 07:20] LABS: Estimated Average Glucose 126 mg/dl
[2022-01-25 07:41] LABS: Basophils # (auto) 0.03 K/uL (0-0.2); Basophils % (auto) 0.5 %; Eosinophils # (auto) 0.09 K/uL (0-0.50); Eosinophils % (auto) 1.4 %; Hematocrit (blood only) 33.8 % (34.1-44.9); Hemoglobin 11.3 g/dl (12.0-16.0); Immature Granulocytes # (auto) 0.02 K/uL (0.00-0.02); Immature Granulocytes % (auto) 0.3 %; Lymphocytes # (auto) 1.43 K/uL (1.2-3.4); Lymphocytes % (auto) 22.7 %; Mean Corpuscular Hemoglobin 29.6 pg (25.0-34.0); Mean Corpuscular Hgb Conc 33.4 g/dL (32.0-36.0); Mean Corpuscular Volume 88.5 fL (80.0-100.0); Mean Platelet Volume 9.7 fL (9.4-12.3); Monocytes # (auto) 0.59 K/uL (0.24-0.82); Monocytes % (auto) 9.4 %; Neutrophils # (auto) 4.14 K/uL (1.4-6.5); Neutrophils % (auto) 65.7 %; Platelet Count 132 K/uL (130-400); RDW Coefficient of Variation 13.1 % (11.5-14.5); RDW Standard Deviation 42.5 fL (36.4-46.3); Red Blood Count 3.82 M/uL (3.93-5.22)
[2022-01-25] MEDS: INSULIN ASPART PER UNIT SC SCH ×4 (07:43→20:49)
[2022-01-25 07:51] LABS: Partial Thromboplastin Ratio 1.8
[2022-01-25 07:56] LABS: Partial Thromboplastin Time 49.3 Seconds (21.0-31.0)
[2022-01-25] MEDS: SODIUM CHLORIDE 0.9% 1000ML 1,000 ML IV SCH (08:05)
[2022-01-25 08:11] LABS: Albumin Level 3.3 gm/dl (3.4-5.0); BUN Creatinine Ratio 23.1 (10-20); Bilirubin Direct 0.3 mg/dl (0-0.2); Bilirubin,Total 1.5 mg/dl (0.2-1.0); Calcium 8.2 mg/dl (8.5-10.1); Creatinine Clr Calc Pharmacy 64.6 ml/min; Est GFR (African American) 98.9 ml/min; Est GFR (Non-African American) 85.3 ml/min; Phosphorus 2.6 mg/dl (2.5-4.9); Total Protein 5.9 gm/dl (6.0-8.3); Troponin I High Sensitivity 259.2 pg/ml (0-14)
--- NOTE | 2022-01-25 09:14 | Cardiology Consultation ---
Date of Consultation January 25, 2022 Assessment & Plan (1) Atrial fibrillation: New onset of atrial fibrillation in the setting of CVA. Echo is pending. IV Lopressor as needed for rates >120, with the goal of permissive HTN and a MAP of 95-100 per neurology. Consider adding digoxin fo rate control. Has been in atrial fibrillation/atrial flutter with a HR in the 90s-100s. [id number] of 6. Currently on heparin gtt. Consider transition to Eliquis once able to tolerate PO. With her age and weight she is on the borderline between dosing for Eliquis. (2) Elevated troponin: Mild elevation of troponin with a peak of 339. Trending down. Most likely due to demand in the setting of atrial fibrillation. (3) Hyperlipidemia: Currently on 40 mg of atorvastatin, continue. Supervising Physician Co-Signing Physician Notes Patient seen and examined. Agree with assessment and plan as outlined by Dr. Bridges. Devastating presentation. Cardioembolic stroke from new onset atrial fibrillation. Agree with intravenous heparin for now. Transition to Eliquis, ?dose as she is borderline (age > 80, wt = 63kg). Consider dose of IV digoxin as her ventricular response is borderline controlled. Consider addition of a beta-marquez prior to discharge. History of Present Illness Attending Physician: Richard Shaw MD History of Present Illness Alia is an 86 year old female with a past medical history of DM2, HLD, osteoporosis, vitamin D deficiency. She presented to the ER after being found down in her house for over 24 hours. Her daughters state that they last time they communicated with her was Sunday afternoon. She presented with right facial droop and expressive aphasia in addition to multiple bruises/contusions. At baseline she lives alone and is independent. In the ED she was found to have new onset atrial fibrillation. She had an elevated CK= 1510, [id number]. CT head showed no acute/subacute changes. CTA of the head/neck showed left MCA stenosis and right vertebral artery severe stenosis. Imaging was also significant for extensive facial fractures and fracture of ribs 3-5. A stroke alert was called in the ED, but she was outside the window for thrombolytic therapy. No events overnight. History limited due to expressive aphasia secondary to CVA,but her daughters were present this morning. They denied that their mother had any prior cardiac disease or any prior episodes of atrial fibrillation. They reiterated that up until this hospitalization, their mother was very independent. Alia was resting comfortably and denies chest pain, dyspnea, lower extremity edema. She is having some pain in her left knee. Allergies Allergy/AdvReac Type Severity Reaction Status Date / Time No Known Drug Allergies Allergy Verified 01/24/22 15:42 Home Medications Medication Instructions Recorded Confirmed Type calcium carbonate 600 mg-vitamin 1 tab PO BID 01/14/19 01/24/22 History D3 10 mcg (400 unit) tablet (Calcium 600 + D(3)) cholecalciferol (vitamin D3) 25 3,000 units PO DAILY 01/14/19 01/24/22 History mcg (1,000 unit) capsule cyanocobalamin (vitamin B-12) 100 100 mcg PO DAILY 01/14/19 01/24/22 History mcg tablet multivitamin,tx-minerals 1 tab PO DAILY 01/14/19 01/24/22 History glimepiride 1 mg tablet 1 mg PO BID #180 tabs 12/22/21 01/24/22 Rx Patient History Medical History Acquired deviated nasal septum Atrial fibrillation Cerebral atherosclerosis Diabetes mellitus Hiatal hernia Hyperlipidemia Osteoporosis Urinary incontinence Vertebral artery stenosis Vitamin D deficiency Surgical History History of dilation and curettage Hx of cataract surgery Family History Unknown Gastric cancer Son Hodgkin's lymphoma Mother , in her 70s History of malignant neoplasm Father , in his 70s History of malignant neoplasm Other Cancer Denies family history of Ovarian cancer Prostate cancer Myocardial infarction Breast cancer Lung cancer Colorectal cancer Stroke Social History Smoking Status: Never smoker Second Hand Exposure: No; Do You Dip or Chew Tobacco: No; Hx Alcohol Use: No Hx Substance Use: No Preferred Language: Belarusian Communication Ability: Effective Visual Impairment: No Limitations Hearing Ability: Hard of Hearing [employer] 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 Beliefs That Will Affect Care: None marital status: / Current Living Situation: Alone current occupational status: retired Other Information That Helps Us Care for You: No Feels Safe at Home: Yes Safety Concerns: Feels Safe At This Time Childhood Exposure to Second-Hand Smoke: No Physical Activity Frequency: Does not Exercise Seatbelt Use: sometimes Assistive Devices: Cane Physical Exam Constitutional: well developed and well nourished; no acute distress Neck: normal visual inspection and trachea midline Respiratory: normal respiratory effort; no respiratory distress Auscultation: lungs clear to auscultation bilaterally Cardiovascular: Rate/Rhythm: + irregularly irregular Heart Sounds: normal S1 and normal S2; no murmur Vessels: dorsalis pedis pulses present and radial pulses present; no JVD Gastrointestinal (Abdomen): normal bowel sounds, soft, nontender, no hepatosplenomegaly Skin: Trauma: + periorbital ecchymosis Neurologic: Speech / Cognition: + abnormal speech and + expressive aphasia Right sided facial droop Results & Data ([facility]) Vital Signs (Past 12 Hours) Vital Signs Temp Pulse Pulse Resp BP Pulse Ox O2 Del Method 01/25/22 07:58 36.8 C 97 H 20 137/81 97 Room Air 01/25/22 03:00 36.8 C 88 16 138/80 92 01/24/22 23:40 87 01/24/22 23:29 36.8 C 100 H 20 118/73 92 01/24/22 21:15 93 H 01/24/22 21:14 36.9 C 116 H 18 131/76 93 Room Air Laboratory Results Cardiac Enzymes 01/24/22 01/24/22 01/25/22 Range/Units 13:52 21:32 06:27 AST 51 H 43 H (13-39) U/L Troponin I High Sens 345.4 H* 339.9 H* 259.2 H* D (0-14) pg/ml Coagulation 01/24/22 01/25/22 01/25/22 Range/Units 13:52 00:56 06:27 PT 11.5 (9.0-12.0) Seconds APTT 22.5 26.2 49.3 H* (21.0-31.0) Seconds Lipids 01/25/22 Range/Units 06:27 Triglycerides 88 (0-150) mg/dl Cholesterol 156 (0-200) mg/dl HDL Cholesterol 52 mg/dl Cholesterol/HDL Ratio 3.0 (0-5) CBC 01/24/22 01/25/22 Range/Units 13:52 06:27 WBC 9.42 6.30 (4.8-10.8) K/ul RBC 4.19 3.82 L (3.93-5.22) M/uL Hgb 12.3 11.3 L (12.0-16.0) g/dl Hct 36.9 33.8 L (34.1-44.9) % Plt Count 150 132 (130-400) K/uL Neut # (Auto) 7.75 H 4.14 (1.4-6.5) K/uL Lymph # (Auto) 0.86 L 1.43 (1.2-3.4) K/uL [place] # (Auto) 0.76 0.59 (0.24-0.82) K/uL Eos # (Auto) 0.00 0.09 (0-0.50) K/uL Baso # (Auto) 0.01 0.03 (0-0.2) K/uL Comprehensive Metabolic Panel 01/24/22 01/24/22 01/25/22 Range/Units 13:52 13:52 06:27 Sodium 139 141 (136-145) mmol/L Potassium 3.5 3.0 L (3.5-5.1) mmol/L Chloride 103 109 H (98-107) mmol/L Carbon Dioxide 26 23 (21-32) mmol/L BUN 19 12 (6-23) mg/dl Creatinine 0.54 L 0.52 L (0.6-1.2) mg/dl Glucose 142 H 100 H (70-99(Fasting)) mg/dl Calcium 9.7 8.2 L (8.5-10.1) mg/dl Direct Bilirubin 0.3 H 0.3 H (0-0.2) mg/dl AST 51 H 43 H (13-39) U/L ALT 18 16 (7-52) U/L Alkaline Phosphatase 57 47 (34-104) U/L Total Protein 7.3 5.9 L (6.0-8.3) gm/dl Albumin 4.1 3.3 L (3.4-5.0) gm/dl Intake and Output 01/24/22 01/25/22 01/25/22 22:59 06:59 14:59 Intake Total 2408 / 2724 316 / 2724 1147 / 1147 Output Total 500 / 1000 500 / 1000 Balance 1908 / 1724 -184 / 1724 1147 / 1147 Intake: IV 2408 / 2724 316 / 2724 1147 / 1147 Acetaminophen 1,000 mg In 100 100 / 200 100 / 200 ml @ 400 mls/hr IV Q8H PRN Rx#: [id number] Ampicillin/Sulbactam Sod 3,000 108 / 324 216 / 324 mg In 0.9 % Sodium Chloride 100 ml @ 200 mls/hr IV Q6H [facility] Rx# :[id number] Heparin Sodium/Dextrose 25,000 147 / 147 units In 500 ml @ 1,050 UNITS/ HR 21 mls/hr IV .[id number] [facility] Rx #:[id number] Magnesium Sulfate / D5w 1 gm In 200 / 200 100 ml @ 100 mls/hr IV Q1H [facility] Rx#:[id number] Sodium Chloride 0.9% 1000ML 1, 2000 / 2000 1000 / 1000 000 ml @ 100 mls/hr IV .Q10H [facility] Rx#:[id number] Output: Urine Amount (Catheter) 500 / 1000 500 / 1000 Malik/Indwelling 500 / 1000 500 / 1000 Other: Other Intake Source NPO Weight 64.5 kg 64.5 kg Weight Measurement Method Built in [facility] Built in [facility] PG Care Time/CCT Total # of Minutes Spent Total Time Spent with Patient: Total time spent is greater than 50% in coordination of care (as documented) at patient's floor/unit and/or counseling patient: Coding Level of Care Code 45577 Initial Inpt Care Lvl 3 Diagnoses Atrial fibrillation I48.91 Elevated troponin R77.8 Hyperlipidemia E78.5
--- NOTE | 2022-01-25 09:16 | Neurology Consultation ---
Date of Consultation January 25, 2022 Assessment & Plan (1) CVA (cerebral vascular accident): (2) Atrial fibrillation: (3) Vertebral artery stenosis: (4) Maxillary sinus fracture: (5) Orbital floor fracture: (6) Rhabdomyolysis: (7) Diabetes mellitus: (8) Multiple fractures of ribs of right side: (9) Left leg pain: Plan this patient is complicated neurologically. Patient suffered a fall with closed head trauma and right orbital, maxillary, and zygomatic arch fractures ( multiple ). She also fractured the right anterior ribs 3 through 5. it is uncertain when she actually fell and had head trauma but it was likely Late January 22 or sometime on January 23 morning to early afternoon. The elevated CK is likely rhabdomyolysis from muscle trauma and possible prolonged lying on the floor. Patient is in atrial fibrillation. 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 It is possible she flipped an embolus to the left middle cerebral artery and then it broke up resulting in multiple strokes as opposed to ending up being 1 large stroke. Other risk factors for stroke include diabetes and dyslipidemia as well as advanced age. She does have old small vessel ischemia noted on MRI. She also has a significantly stenotic right vertebral artery at the origin. She was put on a heparin drip because of the atrial fibrillation and stroke. She does have maxillary sinus bleeding from the fracture. The patient is very hard of hearing and normally wears hearing aids. There needs to be caution /consideration so as not to label her as "confused" or "demented". She has no history of dementia. Recommendations: 1. Awaiting echocardiogram. 2. control blood pressure as you are doing, aiming for a mean arterial pressure 95-100. 3. Control glucose -it is fairly well controlled on current medication. 4. she is on atorvastatin 40 mg a day. Avoid high dose statin in this patient with advanced age as this could increase bleeding risk. 5. Physical, occupational, and speech therapy consult. She will need speech to evaluate before she could swallow. 6. Continue heparin for now and likely will convert to oral medication after her echocardiogram. 7. She would likely needed 81 mg aspirin (or other antiplatelet medication) to prevent small vessel ischemic disease, as anticoagulation will not prevent this. Hold on antiplatelet medication for now. 8. The patient has considerable left leg pain with swelling around the knee. Consider plain x-rays of the knee and hip on that side. Overall, I spent a total of 90 minutes with this case including review of records, review of CT and MRI films, direct evaluation the patient at bedside, and discussion of the case with the patient and her daughters at bedside, RN at bedside, and Dr. Shaw, including differential diagnosis and treatment options. History of Present Illness Reason for Consultation: Patient is an 78-year-old, who I was asked to see the request of Dr. Burnett, for neurologic consultation regarding acute stroke. Requesting Physician: Dr. Burnett Attending Physician: Richard Shaw MD History of Present Illness the patient's 2 daughters are present in the room and help add to the history. Patient has a history of diabetes, dyslipidemia, and atrial fibrillation, on no medication. About a week ago the patient tripped over a hose the shed landing on her left knee. It was swollen and very sore ever since although she was ambulating a little bit better after a couple of days. 1 of her daughters talked to her around 1253 on January 22. She was quite normal. Throughout the afternoon and evening of the , patient was not answering her phone. daughter sent a family friend to the house and she was found in her bed at 11:30 a.m. on the . Apparently she was coaxed to come over to the window and open it partially. The visitors then opened the window, climbed in the house and found that she was not speaking well. The ambulance was called. Daughters state that the patient is bathroom was in disarray and the rug was moved. Parts of the living room and bedroom were in disarray as well. Patient arrived to the emergency room on January 24 at 1:31 p.m. with a temperature of 36.8, pulse 109, respiratory rate 18, blood pressure 142/83, and O2 saturation 98%. She was in atrial fibrillation. Clinically she had a dense right facial droop, and significant expressive aphasia. There may have been some receptive aphasia and her speech was dysarthric. There is weakness on the right side and the left leg. She had bruising and swelling on her left knee, right foot, and right orbit / cheek CT scan of the abdomen and pelvis revealed right anterior 3rd, 4th, and 5th rib fractures, with the 3rd rib being slightly displaced. CT scan of the chest and chest x-ray showed cardiomegaly and a hiatal hernia. CT scan of the head and face showed right periorbital swelling and right orbital fractures ( superior, lateral, and inferior). There her fractures in the right maxillary sinus ( anterior, posterior, and medial) and zygomatic arch. There was layering hemorrhage in the right maxillary sinus. There were no acute findings in the brain. CT angiography of the head showed a stenotic left M2 segment. CT angiography of the neck reviewed severe stenosis at the origin of the right vertebral artery. MRI of the brain showed multiple small acute strokes in the middle cerebral artery territory on the left. There was moderate generalized atrophy and [id number] old small vessel ischemic change. I reviewed all these films. This morning blood pressure is 138/80 and she remains in atrial fibrillation in the 90s. her left knee is still swollen and tender. She has tenderness around the right orbit and cheek and the right anterior chest. Laboratory studies revealed unremarkable CBC, Chem profile which showed mildly elevated glucose on admission, hemoglobin A1c of 6.0, and elevated troponin of 339 yesterday at 259 this morning. CK was 1510 yesterday and 810 today. Triglycerides were 88, total cholesterol 156, LDL 86. urinalysis was unremarkable. Daughters confirm that the patient had no significant dementia and was functioning fairly well at home by herself. She was quite active physically exercising twice a week at the [facility] and active around the house. Allergies Allergy/AdvReac Type Severity Reaction Status Date / Time No Known Drug Allergies Allergy Verified 01/24/22 15:42 Home Medications Medication Instructions Recorded Confirmed Type calcium carbonate 600 mg-vitamin 1 tab PO BID 01/14/19 01/24/22 History D3 10 mcg (400 unit) tablet (Calcium 600 + D(3)) cholecalciferol (vitamin D3) 25 3,000 units PO DAILY 01/14/19 01/24/22 History mcg (1,000 unit) capsule cyanocobalamin (vitamin B-12) 100 100 mcg PO DAILY 01/14/19 01/24/22 History mcg tablet multivitamin,tx-minerals 1 tab PO DAILY 01/14/19 01/24/22 History glimepiride 1 mg tablet 1 mg PO BID #180 tabs 12/22/21 01/24/22 Rx Patient History Medical History Acquired deviated nasal septum Atrial fibrillation Cerebral atherosclerosis Diabetes mellitus Hiatal hernia Hyperlipidemia Osteoporosis Urinary incontinence Vertebral artery stenosis Vitamin D deficiency Surgical History History of dilation and curettage Hx of cataract surgery Family History Unknown Gastric cancer Son Hodgkin's lymphoma Mother , in her 70s History of malignant neoplasm Father , in his 70s History of malignant neoplasm Other Cancer Denies family history of Ovarian cancer Prostate cancer Myocardial infarction Breast cancer Lung cancer Colorectal cancer Stroke Social History Smoking Status: Never smoker Second Hand Exposure: No; Do You Dip or Chew Tobacco: No; Hx Alcohol Use: No Hx Substance Use: No Preferred Language: Spanish Communication Ability: Impaired Visual Impairment: No Limitations Hearing Ability: Hard of Hearing Floor Attendant Required: No Beliefs That Will Affect Care: None marital status: / Current Living Situation: Alone current occupational status: retired Other Information That Helps Us Care for You: No Feels Safe at Home: Yes Safety Concerns: Feels Safe At This Time Childhood Exposure to Second-Hand Smoke: No Physical Activity Frequency: Does not Exercise Seatbelt Use: sometimes Assistive Devices: Cane, Denture - Upper and Hearing Aid - Bilateral Review of Systems 2 Constitutional: + fatigue and + weakness; no fever Eyes: + eye pain; no diplopia and no worsening vision Ear, Nose, Mouth, Throat: + hearing loss; no ear pain, no tinnitus, no dizziness, no snoring, no hoarseness and no dysphagia Respiratory: no cough and no dyspnea Cardiovascular: no chest pain, no palpitations and no lightheadedness Gastrointestinal: no abdominal pain, no nausea and no vomiting Genitourinary: no dysuria, no urinary frequency and no urinary incontinence Musculoskeletal: no back pain, no neck pain, no radicular pain, no joint pain and no myalgia Integumentary: no rash and no lesions Neurologic: + localized weakness and + abnormal speech; no gait abnormality, no generalized weakness, no tingling, no numbness, no tremor(s), no abnormal movements, no headache(s), no confusion and no memory loss Psychiatric: no depression, no irritability, no anxiety, no difficulty concentrating, no confusion and no hallucinations Endocrine: no fatigue and no flushing Hematologic / Lymphatic: no easy bleeding and no easy bruising Allergy / Immunological: no urticaria and no problem reported Exam (Neuro) Physical Exam: The patient is right-handed. The patient is sleepy but easily arousable with voice and can be awake and alert. Speech is dysarthric, but intelligible. She has some trouble naming some objects but other she CT. If I asked her to point to an object she can do that better. Sometimes I wonder she does comprehend. But it must be emphasized that she is very hard of hearing and does not have her hearing aids in. She is oriented to her name and age. She could not state her name but recognized it in a series of 3 possibilities. She recognized her daughter but could not state her name. Her mood is reasonable. Memory testing is difficult given her speech and language problems. She could not read words or state what an object was, but could point to the object if i asked her to (and gave the name of the object). Pupils are 4 mm on the left and 3 mm on the right and both were reactive to light. Extraocular eye muscles are intact without nystagmus. Visual acuity and visual mcnair seem normal grossly to confrontation. There are no deficits to sensation in the face in all 3 distributions of the fifth cranial nerve bilaterally. Corneal reflexes are positive bilaterally. There was a dense facial droop on the right. The left move well. She could open and close her eyes. She had considerable bruising and swelling around the right orbit and right cheek. Palate raises well without asymmetry. Sternocleidomastoid and trapezius strength was normal bilaterally. Tone was difficult to protrude. Neck has a full range of motion without discomfort. There are no cervical bruits bilaterally. There are no cranial or ocular bruits. Heart is without murmur. There is a regular rhythm and rate. Gait was not tested and stance sitting up in bed is very difficult for her. With outstretched arms there is no obvious drift. There are no resting, postural, or action tremors. There is no ataxia with finger to nose testing. There is decreased facility in the right hand. Motor strength is 4/5 Proximally in the right upper extremity including deltoid, biceps, and triceps. In the right hand strength is close to 5/5 with fund director and intrinsics. The left upper extremity is 5/5 diffusely both proximally and distally. The right lower extremity is 4/5 diffusely proximally and distally. She can hold the leg up against gravity. Left lower extremity does not move well because of pain. She has swelling around her knee and does not want a lift the leg up or contracted at the hip or knee. She does have good strength distally in the foot. The limbs have good tone without rigidity or spasticity. There is no atrophy noted in the muscles. Muscle bulk is normal, there is no tenderness to palpation, no myotonia to percussion, and no fasciculations seen. Sensory examination is intact to touch and pin throughout all 4 limbs diffusely. Reflexes are 2/4 in the biceps, triceps, brachioradialis, quadriceps, and Achilles tendons bilaterally. There is no clonus bilaterally. Toes are downgoing with plantar stimulation on the left and equivocal to upgoing on the right. Peripheral pulses are present and of normal quality distally in all 4 limbs. There is no peripheral edema noted in the limbs. Results & Data ([facility]) Vital Signs (Past 12 Hours) Vital Signs Temp Pulse Pulse Resp BP Pulse Ox O2 Del Method 01/25/22 07:58 36.8 C 97 H 20 137/81 97 Room Air 01/25/22 03:00 36.8 C 88 16 138/80 92 01/24/22 23:40 87 01/24/22 23:29 36.8 C 100 H 20 118/73 92 01/24/22 21:15 93 H 01/24/22 21:14 36.9 C 116 H 18 131/76 93 Room Air PG Care Time/CCT Total # of Minutes Spent Total Time Spent with Patient: Total time spent is greater than 50% in coordination of care (as documented) at patient's floor/unit and/or counseling patient: Coding Level of Care Code 19772 Initial Inpt Care Lvl 3 Diagnoses CVA (cerebral vascular accident) I63.9 Atrial fibrillation I48.91 Vertebral artery stenosis I65.09 Maxillary sinus fracture S02.401A Orbital floor fracture S02.30XA Rhabdomyolysis M62.82 Diabetes mellitus E11.9 Multiple fractures of ribs of right side S22.41XA Left leg pain M79.605 Time Spent (min) 90
[2022-01-25] MEDS: ASPIRIN 81 MG ECTAB PO SCH (09:51)
[2022-01-25] MEDS: LIDOCAINE 5% 1 PATCH TD SCH ×2 (09:51→20:48)
[2022-01-25] MEDS: ATORVASTATIN 40 MG TAB PO SCH (09:51)
--- NOTE | 2022-01-25 12:44 | XCELERA ---
[id number]
[2022-01-25] MEDS: POTASSIUM CHLORIDE / WTR 10 MEQ/100 ML PLCT IV SCH ×5 (13:16→20:47)
[2022-01-25] MEDS ORDERED: STANDARD WARFARIN NOMOGRAM SCH (14:00)
--- NOTE | 2022-01-25 15:03 | Hospitalist Progress Note ---
Date of Service January 25, 2022 Assessment & Plan (1) Stroke: Plan: Multiple infarcts left MCA territoryhighly suspicious for embolic; continue current statin, aspirin, IV heparinlater oral anticoagulation; ST/OT/PT Bubble echo negative Neurology input appreciated (2) Atrial fibrillation: Plan: New onset versus newly detected; rate control focus at present; anticoagulation for secondary stroke prevention (3) Rhabdomyolysis: Plan: Minornonissue (4) Elevated troponin: Plan: Uncertain etiology; not definitely convinced cardiac etiology; known in skeletal muscle injury as seen herecertainly nothing to suggest ACS (5) Elevated LFTs: Plan: Minimallikely skeletal muscle injury (6) Extensive facial fractures: Plan: Orofacial maxillary surgery following; conservative management; (7) Orbital floor fracture: Plan: Communicated with orofacial maxillary surgery; nothing to be done according to communication (8) Maxillary sinus fracture: Plan: Same as #6 and 7 (9) Vertebral artery stenosis: Plan: Aspirin, statin; neurology following; will defer whether vascular surgery consult merited at some point (10) Diabetes mellitus: Plan: sugars reasonableno change Plan Hypokalemiareplace Follow mild anemia Admission and Anticipated Discharge Date Admission Date: January 24, 2022 Subjective Follow-up of presentation of being found down essentiallyno new issues overnight; according to story family unable to reach her and ultimately going through the window found her with facial injury, facial droop on the right side; work-up shows multiple infarcts left MCA territory; awake but dysarthric Physical Exam Physical Exam: Constitutional and general: No acute distress as such, looks biologic age Head and face: Right raccoon eye Eyes: No scleral icterus, extraocular movements normal Neck: Supple, no JVD Skin/dermatologic/integument: No rash, no purpura Hematologic and lymphatic: pallor +, no petechia Gastrointestinal/abdomen: Nondistended, soft, nonacute Neurologic: Right facial droop, right hemiparesis Psychiatry: Awake, alert, pleasant, communicative Cardiovascular: Heart rhythm irregular, no rub, no murmur, no gallop Respiratory: Chest movements equal, no use of accessory muscles, no adventitious sounds Extremities: No edema, no cyanosis Results & Data Results & Data ([facility]) Vital Signs (Past 12 Hours) Vital Signs Temp Pulse Pulse Resp BP Pulse Ox O2 Del Method 01/25/22 11:57 36.8 C 98 H 18 112/67 95 Room Air 01/25/22 11:22 99 H 01/25/22 07:58 36.8 C 97 H 20 137/81 97 Room Air 01/25/22 03:00 36.8 C 88 16 138/80 92 Laboratory Results Laboratory Results - last 24 hr 01/24/22 01/24/22 01/24/22 13:52 13:52 14:05 WBC RBC Hgb Hct MCV MCH MCHC RDW Std Deviation RDW Coeff of Paco Plt Count MPV Immature Gran % (Auto) Neut % (Auto) Lymph % (Auto) Orange % (Auto) Eos % (Auto) Baso % (Auto) Neut # (Auto) Lymph # (Auto) Orange # (Auto) Eos # (Auto) Baso # (Auto) Immature Gran # (Auto) APTT PTT Ratio Sodium Potassium Chloride Carbon Dioxide Anion Gap BUN Creatinine Est Cr Clr Drug Dosing Est GFR ( Amer) Est GFR (Non-Af Amer) BUN/Creatinine Ratio Glucose POC Glucose Estimat Average Glucose Hemoglobin A1c Calcium Phosphorus Magnesium Total Bilirubin Direct Bilirubin 0.3 H AST ALT Alkaline Phosphatase Total Creatine Kinase Troponin I High Sens 345.4 H* Total Protein Albumin Triglycerides Cholesterol LDL Cholesterol, Calc VLDL Cholesterol, Calc HDL Cholesterol Cholesterol/HDL Ratio Urine Color Urine Appearance Urine pH Ur Specific Whiteside Urine Protein Urine Glucose (UA) Urine Ketones Urine Blood Urine Nitrite Urine Bilirubin Urine Urobilinogen Ur Leukocyte Esterase Urine WBC (Auto) Urine RBC (Auto) U Hyaline Cast (Auto) U Epithel Cells (Auto) Urine Bacteria (Auto) Blood Type A Positive Antibody Screen NEGATIVE 01/24/22 01/24/22 01/24/22 18:17 21:32 22:00 WBC RBC Hgb Hct MCV MCH MCHC RDW Std Deviation RDW Coeff of Paco Plt Count MPV Immature Gran % (Auto) Neut % (Auto) Lymph % (Auto) Orange % (Auto) Eos % (Auto) Baso % (Auto) Neut # (Auto) Lymph # (Auto) Orange # (Auto) Eos # (Auto) Baso # (Auto) Immature Gran # (Auto) APTT PTT Ratio Sodium Potassium Chloride Carbon Dioxide Anion Gap BUN Creatinine Est Cr Clr Drug Dosing Est GFR ( Amer) Est GFR (Non-Af Amer) BUN/Creatinine Ratio Glucose POC Glucose 111 H Estimat Average Glucose Hemoglobin A1c Calcium Phosphorus Magnesium Total Bilirubin Direct Bilirubin AST ALT Alkaline Phosphatase Total Creatine Kinase Troponin I High Sens 339.9 H* Total Protein Albumin Triglycerides Cholesterol LDL Cholesterol, Calc VLDL Cholesterol, Calc HDL Cholesterol Cholesterol/HDL Ratio Urine Color Yellow Urine Appearance Clear Urine pH 5.5 Ur Specific Whiteside > 1.045 H Urine Protein Negative Urine Glucose (UA) Negative Urine Ketones 1+ H Urine Blood Trace H Urine Nitrite Negative Urine Bilirubin Negative Urine Urobilinogen Negative Ur Leukocyte Esterase Negative Urine WBC (Auto) 1-5 Urine RBC (Auto) 0-4 U Hyaline Cast (Auto) 0 U Epithel Cells (Auto) 5-10 H Urine Bacteria (Auto) Negative Blood Type Antibody Screen 01/25/22 01/25/22 01/25/22 00:56 06:27 06:27 WBC 6.30 RBC 3.82 L Hgb 11.3 L Hct 33.8 L MCV 88.5 MCH 29.6 MCHC 33.4 RDW Std Deviation 42.5 RDW Coeff of Paco 13.1 Plt Count 132 MPV 9.7 Immature Gran % (Auto) 0.3 Neut % (Auto) 65.7 Lymph % (Auto) 22.7 Orange % (Auto) 9.4 Eos % (Auto) 1.4 Baso % (Auto) 0.5 Neut # (Auto) 4.14 Lymph # (Auto) 1.43 Orange # (Auto) 0.59 Eos # (Auto) 0.09 Baso # (Auto) 0.03 Immature Gran # (Auto) 0.02 APTT 26.2 PTT Ratio 1.0 Sodium 141 Potassium 3.0 L Chloride 109 H Carbon Dioxide 23 Anion Gap 9 BUN 12 Creatinine 0.52 L Est Cr Clr Drug Dosing 64.6 Est GFR ( Amer) 98.9 Est GFR (Non-Af Amer) 85.3 BUN/Creatinine Ratio 23.1 H Glucose 100 H POC Glucose Estimat Average Glucose Hemoglobin A1c Calcium 8.2 L Phosphorus 2.6 Magnesium 2.0 Total Bilirubin 1.5 H Direct Bilirubin 0.3 H AST 43 H ALT 16 Alkaline Phosphatase 47 Total Creatine Kinase 810 H Troponin I High Sens 259.2 H* D Total Protein 5.9 L Albumin 3.3 L Triglycerides 88 Cholesterol 156 LDL Cholesterol, Calc 86 VLDL Cholesterol, Calc 18 HDL Cholesterol 52 Cholesterol/HDL Ratio 3.0 Urine Color Urine Appearance Urine pH Ur Specific Whiteside Urine Protein Urine Glucose (UA) Urine Ketones Urine Blood Urine Nitrite Urine Bilirubin Urine Urobilinogen Ur Leukocyte Esterase Urine WBC (Auto) Urine RBC (Auto) U Hyaline Cast (Auto) U Epithel Cells (Auto) Urine Bacteria (Auto) Blood Type Antibody Screen 01/25/22 01/25/22 01/25/22 06:27 06:27 06:30 WBC RBC Hgb Hct MCV MCH MCHC RDW Std Deviation RDW Coeff of Paco Plt Count MPV Immature Gran % (Auto) Neut % (Auto) Lymph % (Auto) Orange % (Auto) Eos % (Auto) Baso % (Auto) Neut # (Auto) Lymph # (Auto) Orange # (Auto) Eos # (Auto) Baso # (Auto) Immature Gran # (Auto) APTT 49.3 H* PTT Ratio 1.8 Sodium Potassium Chloride Carbon Dioxide Anion Gap BUN Creatinine Est Cr Clr Drug Dosing Est GFR ( Amer) Est GFR (Non-Af Amer) BUN/Creatinine Ratio Glucose POC Glucose 97 Estimat Average Glucose 126 Hemoglobin A1c 6.0 H Calcium Phosphorus Magnesium Total Bilirubin Direct Bilirubin AST ALT Alkaline Phosphatase Total Creatine Kinase Troponin I High Sens Total Protein Albumin Triglycerides Cholesterol LDL Cholesterol, Calc VLDL Cholesterol, Calc HDL Cholesterol Cholesterol/HDL Ratio Urine Color Urine Appearance Urine pH Ur Specific Whiteside Urine Protein Urine Glucose (UA) Urine Ketones Urine Blood Urine Nitrite Urine Bilirubin Urine Urobilinogen Ur Leukocyte Esterase Urine WBC (Auto) Urine RBC (Auto) U Hyaline Cast (Auto) U Epithel Cells (Auto) Urine Bacteria (Auto) Blood Type Antibody Screen 01/25/22 01/25/22 11:30 13:25 WBC RBC Hgb Hct MCV MCH MCHC RDW Std Deviation RDW Coeff of Paco Plt Count MPV Immature Gran % (Auto) Neut % (Auto) Lymph % (Auto) Orange % (Auto) Eos % (Auto) Baso % (Auto) Neut # (Auto) Lymph # (Auto) Orange # (Auto) Eos # (Auto) Baso # (Auto) Immature Gran # (Auto) APTT PTT Ratio Sodium Potassium Chloride Carbon Dioxide Anion Gap BUN Creatinine Est Cr Clr Drug Dosing Est GFR ( Amer) Est GFR (Non-Af Amer) BUN/Creatinine Ratio Glucose POC Glucose 113 H Estimat Average Glucose Hemoglobin A1c Calcium Phosphorus 2.5 Magnesium Total Bilirubin Direct Bilirubin AST ALT Alkaline Phosphatase Total Creatine Kinase Troponin I High Sens Total Protein Albumin Triglycerides Cholesterol LDL Cholesterol, Calc VLDL Cholesterol, Calc HDL Cholesterol Cholesterol/HDL Ratio Urine Color Urine Appearance Urine pH Ur Specific Whiteside Urine Protein Urine Glucose (UA) Urine Ketones Urine Blood Urine Nitrite Urine Bilirubin Urine Urobilinogen Ur Leukocyte Esterase Urine WBC (Auto) Urine RBC (Auto) U Hyaline Cast (Auto) U Epithel Cells (Auto) Urine Bacteria (Auto) Blood Type Antibody Screen PG Care Time/CCT Total # of Minutes Spent Total Time Spent with Patient: Total time spent is greater than 50% in coordination of care (as documented) at patient's floor/unit and/or counseling patient: Coding Level of Care Code 80156 Subseq Hosp Care Lvl 3 Diagnoses Stroke I63.9 Atrial fibrillation I48.91 Rhabdomyolysis M62.82 Elevated troponin R77.8 Elevated LFTs R79.89 Extensive facial fractures S02.92XA Orbital floor fracture S02.30XA Maxillary sinus fracture S02.401A Vertebral artery stenosis I65.09 Diabetes mellitus E11.9
--- NOTE | 2022-01-25 15:59 | XRay Report ---
XR hip LT 2V w pelvis CLINICAL HISTORY: s/p fall' L hip pain COMPARISON STUDY: Abdomen and pelvis CT 01/24/2022. FINDINGS: No fracture or dislocation within the pelvis or hips. The sacrum is intact. Mild degenerati ve changes within the bilateral sacroiliac joints. There is a small calcified uterine fibroid again n oted. IMPRESSION: No fracture or dislocation within the pelvis or hips. ACT 112: Negative or not required by law. Electronically signed by: Ronan Simmons M.D. 01/25/2022 3:58 PM
--- NOTE | 2022-01-25 16:03 | XRay Report ---
XR knee LT 1 or 2V routine CLINICAL HISTORY: Left knee pain. COMPARISON: None FINDINGS: Alignment of the left knee is anatomic. There is no significant joint effusion. There is m ild infrapatellar soft tissue swelling. Lateral compartment osteophytosis is noted. There is mild pat ellofemoral compartment osteophytosis. IMPRESSION: 1. No acute fracture. No significant joint effusion. 2. Mild to moderate left knee osteoarthritis. ACT 112: Negative or not required by law. Electronically signed by: Randy Montemayor M.D. 01/25/2022 4:01 PM
[2022-01-25] MEDS: ACETAMINOPHEN 500 MG TAB PO SCH (19:43)
[2022-01-26] MEDS: HEPARIN SODIUM/DEXTROSE 25,000 UNITS/500 ML BAG IV SCH ×2 (00:15→23:42)
[2022-01-26] MEDS: AMPICILLIN/SULBACTAM SOD 3,000 MG in 0.9 % SODIUM CHLORIDE 100 ML IV SCH ×4 (00:17→17:17)
[2022-01-26] MEDS: ACETAMINOPHEN 500 MG TAB PO SCH ×3 (02:58→17:16)
[2022-01-26 06:10] LABS: Basophils # (auto) 0.02 K/uL (0-0.2); Basophils % (auto) 0.4 %; Eosinophils % (auto) 4.2 %; Hematocrit (blood only) 34.2 % (34.1-44.9); Hemoglobin 11.3 g/dl (12.0-16.0); Immature Granulocytes # (auto) 0.05 K/uL (0.00-0.02); Immature Granulocytes % (auto) 1.1 %; Lymphocytes # (auto) 1.43 K/uL (1.2-3.4); Lymphocytes % (auto) 30.2 %; Mean Platelet Volume 9.4 fL (9.4-12.3); Monocytes # (auto) 0.57 K/uL (0.24-0.82); Neutrophils # (auto) 2.47 K/uL (1.4-6.5); Neutrophils % (auto) 52.1 %; Platelet Count 116 K/uL (130-400); White Blood Count 4.74 K/ul (4.8-10.8)
[2022-01-26 06:31] LABS: Mean Corpuscular Hemoglobin 29.4 pg (25.0-34.0); Mean Corpuscular Volume 88.8 fL (80.0-100.0); RBC Morphology Unremarkable; RDW Coefficient of Variation 13.2 % (11.5-14.5); RDW Standard Deviation 43.1 fL (36.4-46.3); Red Blood Count 3.85 M/uL (3.93-5.22)
[2022-01-26 06:37] LABS: Partial Thromboplastin Ratio 2.3
[2022-01-26 06:38] LABS: Albumin Globulin Ratio 1.2 (0.9-2); Albumin Level 3.1 gm/dl (3.4-5.0); Bilirubin,Total 1.5 mg/dl (0.2-1.0); Calcium 8.4 mg/dl (8.5-10.1); Creatinine Clr Calc Pharmacy 66.7 ml/min; Est GFR (African American) 97.1 ml/min; Est GFR (Non-African American) 83.7 ml/min; Globulin 2.6 gm/dl (2.5-4.0); Magnesium 1.8 mg/dl (1.7-2.4); Phosphorus 2.3 mg/dl (2.5-4.9); Potassium 3.4 mmol/L (3.5-5.1); Total Protein 5.7 gm/dl (6.0-8.3)
[2022-01-26 07:07] LABS: Partial Thromboplastin Time 63.2 Seconds (21.0-31.0)
[2022-01-26] MEDS: INSULIN ASPART PER UNIT SC SCH ×4 (07:47→21:01)
[2022-01-26] MEDS: ASPIRIN 81 MG ECTAB PO SCH (07:53)
[2022-01-26] MEDS: LIDOCAINE 5% 1 PATCH TD SCH ×2 (07:54→20:22)
[2022-01-26] MEDS: ATORVASTATIN 40 MG TAB PO SCH (07:54)
--- NOTE | 2022-01-26 08:52 | Neurology Progress Note ---
Date of Service January 26, 2022 Assessment & Plan (1) CVA (cerebral vascular accident): Plan: 1. MRI with acute infarts in the L MCA territory. Layering hemorrhage within the right maxillary sinus 2. CTA head and neck- R vert severe stenosis 3. new onset Afib 4. currently MAP 95-100 then optimize HTN HLD, DM LDL <70 consider patients age 5. long discussion with daughter and patient she does not want to start anticoagulation and is hesitant to start aspirin 81 mg Her daughters will talk to Dr Garcia her PCP to see what he would recommend. but at this point they do not want anticoagulation started. 6. PT/OT for discharge needs 7. follow up with [facility] neurology per their protocol after discharge. (2) Rhabdomyolysis: Plan: 1. IV fluids 2. trend CK and troponin (3) Vertebral artery stenosis: Plan: 1. once risk of bleed is considered aspirin 81 mg- if patient agrees to treatment Admission and Anticipated Discharge Date Admission Date: January 24, 2022 Supervising Physician Co-Signing Physician Notes I have discussed above patient with Dr Tamera Chopra, neurology. I had discussed the patient with Dr. Perez yesterday. He indicated stroke related to atrial fibrillation. Tamera Gallagher spoke to the patient's family today and they indicated they did not want anticoagulant therapy. On that basis antiplatelet therapy with aspirin would be appropriate. We will sign off. Tamera Chopra MD Franc Rojo is an 86 year old female with PMH- DM2, HLD, osteoporosis, vitamin D deficiency, who presented to the [facility] ER 01/24/22 after being found down at home for over 24 hours most likely.Last known well on Sunday afternoon but her family could not get a hold of her this morning. When her neighbors went to the house they were able to get in through the window and found her to have right facial droop, multiple contusions/bruises, and expressive aphasia. She apparently had a fall about a week prior but has been ambulating with a cane since then. She was unable to speak clearly and was confused but able to answer some simple questions but can't remember when she fell. Does admit to pain in her face and has pain in ribs with being moved in bed. at baseline she is very independent and lives alone, weed whacks and mows her own yard and was still driving. It appeared she struggled with crawling or dragging herself from the bathroom to the bed and climbed into her bed. In the ER, she was found to have new onset afib, elevated CK at 1510, elevated troponin of 345, elevated bilirubin and AST, mildly low magnesium and phosphorus. She is doing well today. No current pain. daughters are bedside Review of Systems Review of Systems: All systems reviewed & are unremarkable except as noted in HPI & below Physical Exam Physical Exam: Physical Exam: Constitutional: appearance nourished, healthy Ears, Nose, Mouth and Throat: mucous membranes moist, no injection and skin normal, eyes normal Cardiovascular: irregular Respiratory: course breath sounds Musculoskeletal: no peripheral edema and good distal pulses Skin: right eye ecchymosis around orbit Eyes: extraocular muscles intact (EOMI) NEUROLOGIC EXAMINATION: Mental status: Alert and interactive Oriented to person Speech dysarthric Cranial Nerves some swelling on right side of face Reflexes: Deep tendon reflexes were symmetrical and graded 2/5. Sensory: intact to light and cool touch Gait/Stance: Posture sitting up in bed Results & Data ([facility]) Vital Signs (Past 12 Hours) Vital Signs Temp Pulse Pulse Resp BP Pulse Ox O2 Del Method 01/26/22 07:29 36.3 C L 82 19 145/78 H 96 Room Air 01/26/22 07:00 85 01/26/22 03:00 36.6 C 93 H 20 125/78 92 01/26/22 01:25 91 H 01/25/22 22:59 37.6 C H 94 H 18 126/82 93 Laboratory Results Abnormal lab results 01/25/22 01/25/22 01/25/22 Range/Units 11:30 16:28 20:11 WBC (4.8-10.8) K/ul RBC (3.93-5.22) M/uL Hgb (12.0-16.0) g/dl Plt Count (130-400) K/uL Immature Gran # (Auto) (0.00-0.02) K/uL APTT (21.0-31.0) Seconds Potassium (3.5-5.1) mmol/L Chloride (98-107) mmol/L Creatinine (0.6-1.2) mg/dl POC Glucose 113 H 139 H 102 H (70-99) mg/dl Fasting Glucose (70-99) mg/dl Calcium (8.5-10.1) mg/dl Phosphorus (2.5-4.9) mg/dl Total Bilirubin (0.2-1.0) mg/dl Total Protein (6.0-8.3) gm/dl Albumin (3.4-5.0) gm/dl 01/26/22 01/26/22 01/26/22 Range/Units 05:59 05:59 05:59 WBC 4.74 L (4.8-10.8) K/ul RBC 3.85 L (3.93-5.22) M/uL Hgb 11.3 L (12.0-16.0) g/dl Plt Count 116 L (130-400) K/uL Immature Gran # (Auto) 0.05 H (0.00-0.02) K/uL APTT 63.2 H* (21.0-31.0) Seconds Potassium 3.4 L (3.5-5.1) mmol/L Chloride 111 H (98-107) mmol/L Creatinine 0.55 L (0.6-1.2) mg/dl POC Glucose (70-99) mg/dl Fasting Glucose 110 H (70-99) mg/dl Calcium 8.4 L (8.5-10.1) mg/dl Phosphorus 2.3 L (2.5-4.9) mg/dl Total Bilirubin 1.5 H (0.2-1.0) mg/dl Total Protein 5.7 L (6.0-8.3) gm/dl Albumin 3.1 L (3.4-5.0) gm/dl 01/26/22 Range/Units 07:27 WBC (4.8-10.8) K/ul RBC (3.93-5.22) M/uL Hgb (12.0-16.0) g/dl Plt Count (130-400) K/uL Immature Gran # (Auto) (0.00-0.02) K/uL APTT (21.0-31.0) Seconds Potassium (3.5-5.1) mmol/L Chloride (98-107) mmol/L Creatinine (0.6-1.2) mg/dl POC Glucose 111 H (70-99) mg/dl Fasting Glucose (70-99) mg/dl Calcium (8.5-10.1) mg/dl Phosphorus (2.5-4.9) mg/dl Total Bilirubin (0.2-1.0) mg/dl Total Protein (6.0-8.3) gm/dl Albumin (3.4-5.0) gm/dl Diagnostic Findings MRi brain-Motion degraded exam. Numerous mostly subcentimeter small acute infarcts are noted throughout the left MCA territory. Involutional changes with chronic microvascular ischemic disease. Layering hemorrhage within the right ma xillary sinus. Acute facial bone fractures are discussed on the CT maxillofacial study of same day. Right periorbital and right facial contusions. CTA neck-Mild plaque within the proximal bilateral internal carotid arteries without stenosis. No stenosis within the bilateral common carotid or cervical internal carotid arteries. 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 . No acute cervical spine fracture. CTA head-There is no evidence of hemorrhage, mass effect, or acute territorial ischemia noting angiographic phase technique. There is moderate stenosis of the M2 segment of the left middle cerebral artery. Otherwise unremarkable CT angiogram of the brain. Fractures of the right orbit and right maxillary sinus as above. See report of facial bone CT performed concurrently for detailed facial bone findings. Nondisplaced fracture of the right zygomatic arch. EF 60-65% no ASD
[2022-01-26] MEDS ORDERED: POTASSIUM PHOS 3 MMOL/1 ML INFUSION IV STA (09:32)
[2022-01-26] MEDS ORDERED: POTASSIUM PHOSPHATE 21 MMOL in SODIUM CHLORIDE 0.9% 500 ML IV ONE (09:45)
--- NOTE | 2022-01-26 15:37 | Hospitalist Progress Note ---
Date of Service January 26, 2022 Assessment & Plan (1) Stroke: Plan: Multiple infarcts left MCA territoryhighly suspicious for embolic; family said they be believe in natural therapy, they investigated side effects of statin and concerneddiscussed in my view secondary stroke prevention of greater importance and always has to balance risk benefits; in general statins very very safe; also, nursing communicated reluctance with medication/anticoagulationwhen I discussed with them this a.m. they seemed willing As long as willing continue current statin, aspirin, IV heparinlater oral anticoagulation; ST/OT/PT Bubble echo negative Neurology input appreciated (2) Atrial fibrillation: Plan: Rate controlledfollow clinically (3) Rhabdomyolysis: Plan: Minornonissue (4) Elevated troponin: Plan: Uncertain etiology; not definitely convinced cardiac etiology; known in skeletal muscle injury as seen herecertainly nothing to suggest ACS (5) Extensive facial fractures: Plan: Orofacial maxillary surgery following; conservative management; (6) Orbital floor fracture: Plan: Communicated with orofacial maxillary surgery; nothing to be done according to communication; continue antibiotic for additional 5 to 7 daysUnasyn while in- house (7) Maxillary sinus fracture: Plan: Same as #6 and 7 (8) Vertebral artery stenosis: Plan: Aspirin, statin; neurology following; will defer whether vascular surgery consult merited at some point (9) Diabetes mellitus: Plan: sugars reasonableno change Plan Hypokalemia, hypophosphatemiareplace Follow mild anemia Await rehab placement Admission and Anticipated Discharge Date Admission Date: January 24, 2022 Subjective Follow-up of essentially being found down, diagnosed with acute CVA, likely embolicdoing better Physical Exam Physical Exam: Constitutional and general: No acute distress as such, looks biologic age Head and face: Right raccoon eyebetter Eyes: No scleral icterus, extraocular movements normal Neck: Supple, no JVD Skin/dermatologic/integument: No rash, no purpura Hematologic and lymphatic: pallor +, no petechia Gastrointestinal/abdomen: Nondistended, soft, nonacute Neurologic: Right facial droop, right hemiparesisbetter; dysarthria better Cardiovascular: Heart rhythm irregular, no rub, no murmur, no gallop Respiratory: Chest movements equal, no use of accessory muscles, no adventitious sounds Extremities: No edema, no cyanosis Results & Data Results & Data ([facility]) Vital Signs (Past 12 Hours) Vital Signs Temp Pulse Pulse Resp BP BP Pulse Ox 01/26/22 15:00 36.6 C 87 19 132/83 95 01/26/22 11:18 36.6 C 89 19 111/72 96 01/26/22 07:29 36.3 C L 82 19 145/78 H 96 01/26/22 07:00 85 O2 Del Method 01/26/22 15:00 Room Air 01/26/22 11:18 Room Air 01/26/22 07:29 Room Air 01/26/22 07:00 Laboratory Results Laboratory Results - last 24 hr 01/25/22 01/25/22 01/26/22 16:28 20:11 05:59 WBC RBC Hgb Hct MCV MCH MCHC RDW Std Deviation RDW Coeff of Paco Plt Count MPV Immature Gran % (Auto) Neut % (Auto) Lymph % (Auto) [place] % (Auto) Eos % (Auto) Baso % (Auto) Neut # (Auto) Lymph # (Auto) [place] # (Auto) Eos # (Auto) Baso # (Auto) Immature Gran # (Auto) RBC Morphology APTT PTT Ratio Sodium 141 Potassium 3.4 L Chloride 111 H Carbon Dioxide 25 Anion Gap 5 BUN 11 Creatinine 0.55 L Est Cr Clr Drug Dosing 66.7 Est GFR ( Amer) 97.1 Est GFR (Non-Af Amer) 83.7 POC Glucose 139 H 102 H Fasting Glucose 110 H Calcium 8.4 L Phosphorus 2.3 L Magnesium 1.8 Total Bilirubin 1.5 H AST 31 ALT 16 Alkaline Phosphatase 45 Total Protein 5.7 L Albumin 3.1 L Globulin 2.6 Albumin/Globulin Ratio 1.2 01/26/22 01/26/22 01/26/22 05:59 05:59 07:27 WBC 4.74 L RBC 3.85 L Hgb 11.3 L Hct 34.2 MCV 88.8 MCH 29.4 MCHC 33.0 RDW Std Deviation 43.1 RDW Coeff of Paco 13.2 Plt Count 116 L MPV 9.4 Immature Gran % (Auto) 1.1 Neut % (Auto) 52.1 Lymph % (Auto) 30.2 [place] % (Auto) 12.0 Eos % (Auto) 4.2 Baso % (Auto) 0.4 Neut # (Auto) 2.47 Lymph # (Auto) 1.43 [place] # (Auto) 0.57 Eos # (Auto) 0.20 Baso # (Auto) 0.02 Immature Gran # (Auto) 0.05 H RBC Morphology Unremarkable APTT 63.2 H* PTT Ratio 2.3 Sodium Potassium Chloride Carbon Dioxide Anion Gap BUN Creatinine Est Cr Clr Drug Dosing Est GFR ( Amer) Est GFR (Non-Af Amer) POC Glucose 111 H Fasting Glucose Calcium Phosphorus Magnesium Total Bilirubin AST ALT Alkaline Phosphatase Total Protein Albumin Globulin Albumin/Globulin Ratio 01/26/22 11:19 WBC RBC Hgb Hct MCV MCH MCHC RDW Std Deviation RDW Coeff of Paco Plt Count MPV Immature Gran % (Auto) Neut % (Auto) Lymph % (Auto) [place] % (Auto) Eos % (Auto) Baso % (Auto) Neut # (Auto) Lymph # (Auto) [place] # (Auto) Eos # (Auto) Baso # (Auto) Immature Gran # (Auto) RBC Morphology APTT PTT Ratio Sodium Potassium Chloride Carbon Dioxide Anion Gap BUN Creatinine Est Cr Clr Drug Dosing Est GFR ( Amer) Est GFR (Non-Af Amer) POC Glucose 170 H Fasting Glucose Calcium Phosphorus Magnesium Total Bilirubin AST ALT Alkaline Phosphatase Total Protein Albumin Globulin Albumin/Globulin Ratio PG Care Time/CCT Total # of Minutes Spent Total Time Spent with Patient: Total time spent is greater than 50% in coordination of care (as documented) at patient's floor/unit and/or counseling patient: Coding Level of Care Code 31757 Subseq Hosp Care Lvl 2 Diagnoses Stroke I63.9 Atrial fibrillation I48.91 Rhabdomyolysis M62.82 Elevated troponin R77.8 Extensive facial fractures S02.92XA Orbital floor fracture S02.30XA Maxillary sinus fracture S02.401A Vertebral artery stenosis I65.09 Diabetes mellitus E11.9
--- NOTE | 2022-01-26 21:54 | Oral/Maxillofacial Consult ---
Date of Consultation January 26, 2022 Assessment & Plan (1) Orbital floor fracture: (2) Extensive facial fractures: (3) Maxillary sinus fracture: History of Present Illness Attending Physician: Richard Shaw MD History of Present Illness Patient fell exact date of fall not know may of occurred anywhere with in the last 4-7 days. There is ecchymosis right eye and cheek minimal swelling noted Teeth all WNL No facial deformity noted I reviewed the CT scan and appreciate the fractures involving the right orbital floor and sinus. Mrs. Oglesby has a good range of eye movement --no entrapment I was not able to ascertain her vision or complaints of double vision-- the minimal orbital floor fracture and the excellent eye movement I do not believe that there is any ocular trauma. The sinus fractures are all non displaced and will require no treatment--healing will be uneventful. I would suggest IV then oral antibiotics for 5-7 days Avoid nose blowing No surgical intervention required for the orbital floor or sinus fractures. all non or minimal displaced healing will be uneventful No follow up needed as all fracture will heal without any further management Allergies Allergy/AdvReac Type Severity Reaction Status Date / Time No Known Drug Allergies Allergy Verified 01/24/22 15:42 Home Medications Medication Instructions Recorded Confirmed Type calcium carbonate 600 mg-vitamin 1 tab PO BID 01/14/19 01/24/22 History D3 10 mcg (400 unit) tablet (Calcium 600 + D(3)) cholecalciferol (vitamin D3) 25 3,000 units PO DAILY 01/14/19 01/24/22 History mcg (1,000 unit) capsule cyanocobalamin (vitamin B-12) 100 100 mcg PO DAILY 01/14/19 01/24/22 History mcg tablet multivitamin,tx-minerals 1 tab PO DAILY 01/14/19 01/24/22 History glimepiride 1 mg tablet 1 mg PO BID #180 tabs 12/22/21 01/24/22 Rx apixaban 5 mg tablet (Eliquis) 5 mg PO BID #60 tabs 01/26/22 Rx Patient History Medical History Acquired deviated nasal septum Atrial fibrillation Cerebral atherosclerosis Diabetes mellitus Hiatal hernia Hyperlipidemia Osteoporosis Urinary incontinence Vertebral artery stenosis Vitamin D deficiency Surgical History History of dilation and curettage Hx of cataract surgery Family History Unknown Gastric cancer Son Hodgkin's lymphoma Mother , in her 70s History of malignant neoplasm Father , in his 70s History of malignant neoplasm Other Cancer Denies family history of Ovarian cancer Prostate cancer Myocardial infarction Breast cancer Lung cancer Colorectal cancer Stroke Social History Smoking Status: Never smoker Second Hand Exposure: No; Do You Dip or Chew Tobacco: No; Hx Alcohol Use: No Hx Substance Use: No Preferred Language: Malay Communication Ability: Effective Visual Impairment: No Limitations Hearing Ability: Hard of Hearing Pot Puller Required: No Beliefs That Will Affect Care: None marital status: / Current Living Situation: Alone current occupational status: retired Other Information That Helps Us Care for You: No Feels Safe at Home: Yes Safety Concerns: Feels Safe At This Time Childhood Exposure to Second-Hand Smoke: No Physical Activity Frequency: Does not Exercise Seatbelt Use: sometimes Assistive Devices: Cane Results & Data ([facility]) Vital Signs (Past 12 Hours) Vital Signs Temp Pulse Resp BP Pulse Ox O2 Del Method 01/26/22 20:12 36.8 C 91 H 20 160/94 H 96 Room Air 01/26/22 15:00 36.6 C 87 19 132/83 95 Room Air 01/26/22 11:18 36.6 C 89 19 111/72 96 Room Air PG Care Time/CCT Total # of Minutes Spent Total Time Spent with Patient: Total time spent is greater than 50% in coordination of care (as documented) at patient's floor/unit and/or counseling patient: Coding Level of Care Code 20309 Initial Inpt Care Lvl 3 Diagnoses Orbital floor fracture S02.30XA Extensive facial fractures S02.92XA Maxillary sinus fracture S02.401A
[2022-01-27] MEDS: AMPICILLIN/SULBACTAM SOD 3,000 MG in 0.9 % SODIUM CHLORIDE 100 ML IV SCH ×3 (01:00→12:53)
[2022-01-27] MEDS: ACETAMINOPHEN 500 MG TAB PO SCH ×4 (05:21→18:24)
[2022-01-27 06:59] LABS: Basophils # (auto) 0.03 K/uL (0-0.2); Basophils % (auto) 0.7 %; Eosinophils # (auto) 0.25 K/uL (0-0.50); Eosinophils % (auto) 5.5 %; Hematocrit (blood only) 34.1 % (34.1-44.9); Hemoglobin 11.3 g/dl (12.0-16.0); Immature Granulocytes # (auto) 0.09 K/uL (0.00-0.02); Lymphocytes # (auto) 1.39 K/uL (1.2-3.4); Lymphocytes % (auto) 30.5 %; Mean Corpuscular Hemoglobin 29.7 pg (25.0-34.0); Mean Corpuscular Hgb Conc 33.1 g/dL (32.0-36.0); Mean Corpuscular Volume 89.7 fL (80.0-100.0); Mean Platelet Volume 9.6 fL (9.4-12.3); Monocytes # (auto) 0.57 K/uL (0.24-0.82); Monocytes % (auto) 12.5 %; Neutrophils # (auto) 2.22 K/uL (1.4-6.5); Neutrophils % (auto) 48.8 %; Platelet Count 131 K/uL (130-400); RDW Coefficient of Variation 13.2 % (11.5-14.5); RDW Standard Deviation 43.2 fL (36.4-46.3); White Blood Count 4.55 K/ul (4.8-10.8)
[2022-01-27] MEDS: ATORVASTATIN 40 MG TAB PO SCH (07:28)
[2022-01-27] MEDS: ASPIRIN 81 MG ECTAB PO SCH (07:28)
[2022-01-27] MEDS: LIDOCAINE 5% 1 PATCH TD SCH ×2 (07:29→21:35)
[2022-01-27 07:39] LABS: Albumin Globulin Ratio 1.2 (0.9-2); Albumin Level 3.3 gm/dl (3.4-5.0); Bilirubin,Total 1.3 mg/dl (0.2-1.0); Calcium 8.8 mg/dl (8.5-10.1); Est GFR (African American) 94.8 ml/min; Est GFR (Non-African American) 81.8 ml/min; Globulin 2.7 gm/dl (2.5-4.0); Magnesium 1.7 mg/dl (1.7-2.4); Phosphorus 3.6 mg/dl (2.5-4.9); Potassium 3.4 mmol/L (3.5-5.1)
[2022-01-27] MEDS: INSULIN ASPART PER UNIT SC SCH ×4 (07:45→21:36)
[2022-01-27 07:49] LABS: Partial Thromboplastin Ratio 2.7
[2022-01-27 07:54] LABS: Partial Thromboplastin Time 74.4 Seconds (21.0-31.0)
--- NOTE | 2022-01-27 09:15 | Cardiology Progress Note ---
Date of Service January 27, 2022 Assessment & Plan (1) Atrial fibrillation: Plan: New onset of atrial fibrillation in the setting of CVA. Echo showed normal LV systolic function with mild concentric LVH and an EF= 60- 65%. No interatrial shunt. IV Lopressor as needed for rates >120, with the goal of permissive HTN and a MAP of 95-100 per neurology. Has been in atrial fibrillation/atrial flutter with a HR in the 70s-90s. [id number] of 6. Was transitioned from heparin gtt to Eliquis 5 mg BID and would recommend to continue. Family seems agreeable. (2) Hyperlipidemia: Plan: Currently on 40 mg of atorvastatin, would recommend to continue. Unsure if pt/family will be agreeable. (3) Elevated troponin: Plan: Mild elevation of troponin with a peak of 339. Trending down. Most likely due to demand in the setting of atrial fibrillation. Admission and Anticipated Discharge Date Admission Date: January 24, 2022 Supervising Physician Co-Signing Physician Notes Patient seen and examined. Agree with assessment and plan as outlined by Dr. Bridges. Recommend long-term anticoagulation with Eliquis. Consider the addition of low-dose digoxin to better control her ventricular response. Franc Rojo is an 86 year old female with a past medical history of DM2, HLD, osteoporosis, vitamin D deficiency. She was admitted 01/24 after being found down in her house by her daughters. Unclear how long she was down, but at least 24 hours based on daughters reporting. Diagnosed with CVA in the left MCA territory most likely cardioembolic from new onset atrial fibrillation. Also had multiple facial and rib fractures. New events overnight. She states that she is feeling well this morning. Speech and strength improving. Physical Exam Physical Exam: Constitutional: well-appearing, no acute distress HEENT: NCAT, no conjunctival injection CV: regular rhythm, no murmur appreciated, extremities well-perfused, no LE edema Resp: CTABL, no wheezes/rales/rhonchi appreciated, no increased work of breathing GI: soft, nondistended, nontender, BS normoactive Neuro: alert, oriented to person, right sided facial droop Constitutional: well developed and well nourished; no acute distress Neck: normal visual inspection and trachea midline Respiratory: normal respiratory effort; no respiratory distress Auscultatio n: lungs clear to auscultation bilaterally Cardiovascular: Rate/Rhythm: + irregularly irregular Heart Sounds: normal S1 and normal S2; no murmur Vessels: dorsalis pedis pulses present and radial pulses present; no JVD Gastrointestinal (Abdomen): normal bowel sounds, soft, nontender, no hepatosplenomegaly Skin: Trauma: + periorbital ecchymosis Neurologic: Speech / Cognition: + abnormal speech and + expressive aphasia Results & Data ([facility]) Vital Signs (Past 12 Hours) Vital Signs Temp Pulse Pulse Resp BP Pulse Ox O2 Del Method 01/27/22 07:22 36.6 C 90 19 166/81 H 96 Room Air 01/26/22 22:20 88 01/26/22 23:20 36.5 C 88 18 115/74 97 Room Air Laboratory Results Cardiac Enzymes 01/27/22 Range/Units 06:12 AST 25 (13-39) U/L Coagulation 01/27/22 Range/Units 06:12 APTT 74.4 H* (21.0-31.0) Seconds CBC 01/27/22 Range/Units 06:12 WBC 4.55 L (4.8-10.8) K/ul RBC 3.80 L (3.93-5.22) M/uL Hgb 11.3 L (12.0-16.0) g/dl Hct 34.1 (34.1-44.9) % Plt Count 131 (130-400) K/uL Neut # (Auto) 2.22 (1.4-6.5) K/uL Lymph # (Auto) 1.39 (1.2-3.4) K/uL [place] # (Auto) 0.57 (0.24-0.82) K/uL Eos # (Auto) 0.25 (0-0.50) K/uL Baso # (Auto) 0.03 (0-0.2) K/uL Comprehensive Metabolic Panel 01/27/22 Range/Units 06:12 Sodium 142 (136-145) mmol/L Potassium 3.4 L (3.5-5.1) mmol/L Chloride 107 (98-107) mmol/L Carbon Dioxide 28 (21-32) mmol/L BUN 11 (6-23) mg/dl Creatinine 0.59 L (0.6-1.2) mg/dl Calcium 8.8 (8.5-10.1) mg/dl AST 25 (13-39) U/L ALT 17 (7-52) U/L Alkaline Phosphatase 46 (34-104) U/L Total Protein 6.0 (6.0-8.3) gm/dl Albumin 3.3 L (3.4-5.0) gm/dl Intake and Output 01/26/22 01/27/22 01/27/22 22:59 06:59 14:59 Intake Total 955.75 / 1926.45 411.2 / 1926.45 204.00 / 204.00 Output Total 999 / 2550 1000 / 2550 Balance -44.25 / -623.55 -588.8 / -623.55 204.00 / 204.00 Intake: IV 955.75 / 1431.45 311.2 / 1431.45 204.00 / 204.00 Ampicillin/Sulbactam Sod 3,000 216 / 432 216 / 432 mg In 0.9 % Sodium Chloride 100 ml @ 200 mls/hr IV Q6H [facility] Rx# :[id number] Heparin Sodium/Dextrose 25,000 232.75 / 492.45 95.2 / 492.45 204.00 / 204.00 units In 500 ml @ 1,050 UNITS/ HR 21 mls/hr IV .[id number] [facility] Rx #:[id number] Potassium Phosphate 21 mmol In 507 / 507 Sodium Chloride 0.9% 500 ml @ 88 mls/hr IV ONE ONE Rx#: [id number] Oral 100 / 495 Output: Urine Amount (Catheter) 999 / 2550 1000 / 2550 Malik/Indwelling 1000 / 255 1000 / 2550 Other: Weight 67 kg Weight Measurement Method Built in [facility] PG Care Time/CCT Total # of Minutes Spent Total Time Spent with Patient: Total time spent is greater than 50% in coordination of care (as documented) at patient's floor/unit and/or counseling patient: Coding Level of Care Code 61459 Subseq Hosp Care Lvl 3 Diagnoses Atrial fibrillation I48.91 Hyperlipidemia E78.5 Elevated troponin R77.8
[2022-01-27] MEDS ORDERED: POTASSIUM CHLORIDE CRTAB 20 MEQ TABCR PO STA (09:46)
--- NOTE | 2022-01-27 11:05 | CT Scan Report ---
CT head/brain wo con CLINICAL HISTORY: 86 years-old Female with CVA, diplopia. Acute strokelike symptoms with double visi on TECHNIQUE: Multiple axial CT images of the head were obtained without contrast. A dose lowering tech nique was utilized adhering to the principles of ALARA. CT DOSE: 537.48 mGy.cm COMPARISON: Head CT and CT maxillofacial studies 01/24/2022, brain MRI 01/24/2022 FINDINGS: No acute intracranial hemorrhage, midline shift, intracranial mass, hydrocephalus, territorial ischem ia or abnormal extra-axial collection. Age-related involutional changes with chronic microvascular is chemic disease. Subcentimeter infarctions throughout the left cerebral hemisphere redemonstrated with mildly progressed cytotoxic edema. Chronic left cerebellar lacunar infarcts. Acute right-sided facial bone fractures are redemonstrated. No acute calvarial fracture is seen. Prio r bilateral lens repair. Right periorbital and right cheek soft tissue contusions. The paranasal sinu ses, mastoid air cells, and middle ear cavities are clear. IMPRESSION: 1. Evolving acute/early subacute left cerebral hemisphere tiny infarctions with mildly progressed cyt otoxic edema compared to the 01/24/2022 studies without significant mass effect, midline shift or intr acranial hemorrhage. 2. Involutional changes with chronic microvascular ischemic disease. 3. Acute right facial bone fractures with small right periorbital and right cheek contusions redemons trated. ACT 112: Negative or not required by law. The above report was generated using voice recognition software. It may contain grammatical, syntax o r spelling errors. Electronically signed by: Basim Bai M.D. 01/27/2022 11:04 AM
[2022-01-27] MEDS: APIXABAN 5 MG TABLET PO SCH ×2 (11:22→20:15)
[2022-01-27] MEDS ORDERED: TRIAMCINOLONE ACET 40 MG/ML VIAL IA ONE (12:03)
--- NOTE | 2022-01-27 15:56 | Progress Notes ---
DATE OF SERVICE: 01/27/2022. The patient is 86. Admitted because of a stroke, fall and facial fractures. Currently on blood thin ner. She is interviewed with her daughter and audio director. She has had a long history of left knee pain, which has gotten worse recently, possibly because of the fall. Her medications, allergies, and past medical history noted and reviewed on the chart. Notes were rev iewed. X-rays of the left knee show no acute fracture or effusion. She has evidence of lateral compartment spurring on this nonweightbearing film, and likely has some degree of lateral compartment osteoarthri tis. On exam, she is able to extend the knee to 0, but cannot do a leg lift. Her extensor mechanism is in tact. Pedal pulses are trace. She has 5/5 ankle and toe plantar flexion, dorsiflexion and eversion strength. She has normal knee flexion and extension strength. There is no knee effusion. She has a n abrasion laterally and a yellowish bruise anteriorly. The knee is tender only over the lateral kun nt line area. Grossly, the knee is intact in terms of ligament stability. She can range from 0-90 a nd there is painless movement of the hip. IMPRESSION: Left knee pain, likely secondary to arthritis/contusion. PLAN: Findings are discussed with the patient, her audio director and her daughter. Would recommend ambulat ion with walker, which she is currently doing. She is getting PT and OT and will be heading off to [facility]. They could get her an [id number] knee brace to wear for support. She would be able to take Tylenol and apply heat or ice to the knee for pain relief. I did offer her a corticosteroid inj ection, but they did not want to proceed with that at this time. We will arrange an outpatient appoi ntment to see me within the next few weeks to consider such, if they so desire. She can weight bear as tolerated on the left. Job ID: [id number]
--- NOTE | 2022-01-27 16:51 | Hospitalist Progress Note ---
Date of Service January 27, 2022 Assessment & Plan (1) Stroke: Plan: Likely embolic infarcts secondary to A. fibtransition to [place] are agreeable at present; suspect diplopia not clearly newCT head obtainednothing contributory (2) Atrial fibrillation: Plan: Rate controlled but BP drifting upinitiate metoprolol tartrate (3) Rhabdomyolysis: Plan: Minornonissue (4) Elevated troponin: Plan: Uncertain etiology; not definitely convinced cardiac etiology; known in skeletal muscle injury as seen herecertainly nothing to suggest ACS (5) Extensive facial fractures: Plan: Orofacial maxillary surgery following; conservative management;; per discussion via [employer] text antibiotics preventative for about 5-7 more daystransition to oral Augmentin (6) Orbital floor fracture: Plan: Communicated with orofacial maxillary surgery; nothing to be done according to communication; continue antibiotic for additional 5 to 7 daysUnasyn while in- house (7) Maxillary sinus fracture: Plan: Same as #6 and 7 (8) Vertebral artery stenosis: Plan: Aspirin, statin; neurology following; will defer whether vascular surgery consult merited at some pointcan be as outpatient (9) Diabetes mellitus: Plan: sugars reasonableno change Plan Follow anemia, mild leukopenia Replace potassium Orthopedic consultthey requested Admission and Anticipated Discharge Date Admission Date: January 24, 2022 Subjective Follow-up of presentation with having been found down, facial droopdoing much better but did mention diplopia; also ongoing left knee knee discomfort Physical Exam Physical Exam: Constitutional and general: No acute distress as such, looks biologic age Head and face: Right raccoon eyebetter Eyes: No scleral icterus, extraocular movements normal Neck: Supple, no JVD Skin/dermatologic/integument: No rash, no purpura Hematologic and lymphatic: pallor +, no petechia Gastrointestinal/abdomen: Nondistended, soft, nonacute Neurologic: Right facial droop, right hemiparesisbetter; dysarthria better Cardiovascular: Heart rhythm irregular, no rub, no murmur, no gallop Respiratory: Chest movements equal, no use of accessory muscles, no adventitious sounds Extremities: No edema, no cyanosis Results & Data Results & Data ([facility]) Vital Signs (Past 12 Hours) Vital Signs Temp Pulse Pulse Resp BP Pulse Ox O2 Del Method 08/19/22 15:05 36.8 C 85 19 156/75 H 97 Room Air 01/27/22 11:25 36.6 C 93 H 19 130/78 91 Room Air 01/27/22 07:00 88 01/27/22 07:22 36.6 C 90 19 166/81 H 96 Room Air Laboratory Results Laboratory Results - last 24 hr 01/26/22 01/27/22 01/27/22 20:10 06:12 06:12 WBC RBC Hgb Hct MCV MCH MCHC RDW Std Deviation RDW Coeff of Paco Plt Count MPV Immature Gran % (Auto) Neut % (Auto) Lymph % (Auto) Amelia % (Auto) Eos % (Auto) Baso % (Auto) Neut # (Auto) Lymph # (Auto) Amelia # (Auto) Eos # (Auto) Baso # (Auto) Immature Gran # (Auto) APTT 74.4 H* PTT Ratio 2.7 Sodium 142 Potassium 3.4 L Chloride 107 Carbon Dioxide 28 Anion Gap 7 BUN 11 Creatinine 0.59 L Est Cr Clr Drug Dosing 62.0 Est GFR ( Amer) 94.8 Est GFR (Non-Af Amer) 81.8 POC Glucose 127 H Fasting Glucose 119 H Calcium 8.8 Phosphorus 3.6 D Magnesium 1.7 Total Bilirubin 1.3 H AST 25 ALT 17 Alkaline Phosphatase 46 Total Protein 6.0 Albumin 3.3 L Globulin 2.7 Albumin/Globulin Ratio 1.2 01/27/22 01/27/22 01/27/22 06:12 07:19 11:22 WBC 4.55 L RBC 3.80 L Hgb 11.3 L Hct 34.1 MCV 89.7 MCH 29.7 MCHC 33.1 RDW Std Deviation 43.2 RDW Coeff of Paco 13.2 Plt Count 131 MPV 9.6 Immature Gran % (Auto) 2.0 Neut % (Auto) 48.8 Lymph % (Auto) 30.5 Amelia % (Auto) 12.5 Eos % (Auto) 5.5 Baso % (Auto) 0.7 Neut # (Auto) 2.22 Lymph # (Auto) 1.39 Amelia # (Auto) 0.57 Eos # (Auto) 0.25 Baso # (Auto) 0.03 Immature Gran # (Auto) 0.09 H APTT PTT Ratio Sodium Potassium Chloride Carbon Dioxide Anion Gap BUN Creatinine Est Cr Clr Drug Dosing Est GFR ( Amer) Est GFR (Non-Af Amer) POC Glucose 128 H 150 H Fasting Glucose Calcium Phosphorus Magnesium Total Bilirubin AST ALT Alkaline Phosphatase Total Protein Albumin Globulin Albumin/Globulin Ratio 01/27/22 16:17 WBC RBC Hgb Hct MCV MCH MCHC RDW Std Deviation RDW Coeff of Paco Plt Count MPV Immature Gran % (Auto) Neut % (Auto) Lymph % (Auto) Amelia % (Auto) Eos % (Auto) Baso % (Auto) Neut # (Auto) Lymph # (Auto) Amelia # (Auto) Eos # (Auto) Baso # (Auto) Immature Gran # (Auto) APTT PTT Ratio Sodium Potassium Chloride Carbon Dioxide Anion Gap BUN Creatinine Est Cr Clr Drug Dosing Est GFR ( Amer) Est GFR (Non-Af Amer) POC Glucose 109 H Fasting Glucose Calcium Phosphorus Magnesium Total Bilirubin AST ALT Alkaline Phosphatase Total Protein Albumin Globulin Albumin/Globulin Ratio PG Care Time/CCT Total # of Minutes Spent Total Time Spent with Patient: Total time spent is greater than 50% in coordination of care (as documented) at patient's floor/unit and/or counseling patient: Coding Level of Care Code 46684 Subseq Hosp Care Lvl 2 Diagnoses Stroke I63.9 Atrial fibrillation I48.91 Rhabdomyolysis M62.82 Elevated troponin R77.8 Extensive facial fractures S02.92XA Orbital floor fracture S02.30XA Maxillary sinus fracture S02.401A Vertebral artery stenosis I65.09 Diabetes mellitus E11.9
[2022-01-27] MEDS: AMOXICILLIN/CLAVULANATE 875 MG TAB PO SCH (20:15)
[2022-01-27] MEDS: METOPROLOL TARTRATE 25 MG TAB PO SCH (20:15)
[2022-01-28] MEDS: ACETAMINOPHEN 500 MG TAB PO SCH ×2 (02:49→11:59)
[2022-01-28 07:36] LABS: Basophils # (auto) 0.02 K/uL (0-0.2); Basophils % (auto) 0.5 %; Eosinophils # (auto) 0.22 K/uL (0-0.50); Eosinophils % (auto) 5.1 %; Hematocrit (blood only) 33.8 % (34.1-44.9); Hemoglobin 11.2 g/dl (12.0-16.0); Immature Granulocytes # (auto) 0.05 K/uL (0.00-0.02); Immature Granulocytes % (auto) 1.2 %; Lymphocytes # (auto) 1.43 K/uL (1.2-3.4); Lymphocytes % (auto) 33.2 %; Mean Corpuscular Hemoglobin 29.5 pg (25.0-34.0); Mean Corpuscular Hgb Conc 33.1 g/dL (32.0-36.0); Mean Corpuscular Volume 88.9 fL (80.0-100.0); Mean Platelet Volume 9.4 fL (9.4-12.3); Monocytes # (auto) 0.52 K/uL (0.24-0.82); Monocytes % (auto) 12.1 %; Neutrophils # (auto) 2.07 K/uL (1.4-6.5); Neutrophils % (auto) 47.9 %; Platelet Count 151 K/uL (130-400); RDW Coefficient of Variation 13.2 % (11.5-14.5); RDW Standard Deviation 42.8 fL (36.4-46.3); White Blood Count 4.31 K/ul (4.8-10.8)
[2022-01-28 08:12] LABS: Albumin Globulin Ratio 1.2 (0.9-2); Albumin Level 3.3 gm/dl (3.4-5.0); Bilirubin,Total 1.1 mg/dl (0.2-1.0); Calcium 8.9 mg/dl (8.5-10.1); Creatinine Clr Calc Pharmacy 57.5 ml/min; Est GFR (African American) 92.3 ml/min; Est GFR (Non-African American) 79.7 ml/min; Globulin 2.7 gm/dl (2.5-4.0); Magnesium 1.7 mg/dl (1.7-2.4); Phosphorus 4.1 mg/dl (2.5-4.9); Potassium 3.7 mmol/L (3.5-5.1)
[2022-01-28] MEDS: INSULIN ASPART PER UNIT SC SCH ×3 (08:20→17:33)
[2022-01-28] MEDS: AMOXICILLIN/CLAVULANATE 875 MG TAB PO SCH ×2 (09:29→17:34)
[2022-01-28] MEDS: METOPROLOL TARTRATE 25 MG TAB PO SCH (09:29)
[2022-01-28] MEDS: APIXABAN 5 MG TABLET PO SCH (09:30)
[2022-01-28] MEDS: ASPIRIN 81 MG ECTAB PO SCH (09:30)
[2022-01-28] MEDS: ATORVASTATIN 40 MG TAB PO SCH (09:30)
[2022-01-28] MEDS: LIDOCAINE 5% 1 PATCH TD SCH (09:31)
[2022-01-28] MEDS ORDERED: oxyCODONE HCL IR 5 MG TAB (IMMEDIATE RELEASE) PO PRN (13:38)
[2022-01-28] MEDS ORDERED: traMADol HCL 50 MG TABLET PO PRN (13:38)
--- NOTE | 2022-01-28 13:38 | Discharge Summary ---
Date of Service January 28, 2022 Admission HPI Per Admitting Provider This patient is an 86-year-old female with history of DM2, hyperlipidemia, osteoporosis, vitamin D deficiency, who presents to the ER after being found down at home for over 24 hours most likely. She was last known well on Sunday afternoon but her family could not get a hold of her this morning. When her neighbors went to the house they were able to get in through the window and found her to have right facial droop, multiple contusions/bruises, and expressive aphasia. She apparently had a fall about a week prior but has been ambulating with a cane since then. Pt unable to speak clearly and is confused. Able to answer some simple questions. Can't remember when she fell. Does admit to pain in her face and has pain in ribs with being moved in bed. Family reports pt typically very independent; lives alone, weed whacks and mows her own yard. When they went in the house, it appeared she struggled with crawling or dragging herself from the bathroom to the bed and climbed into her bed. In the ER, she was found to have new onset atrial fibrillation on ECG, elevated CK at 1510, elevated troponin of 345, elevated bilirubin and AST, mildly low magnesium and phosphorus. Moore CT scans showed old cerebellar bilateral lacunar infarcts but nothing subacute or acute, CT angiogram head and neck with moderate stenosis of M2 segment of left MCA, severe stenosis at origin of right vertebral artery, no acute cervical spine facture; facial CT showed acute fractures of right superior, lateral, and inferior orbital rangel without extraocular muscle entrapment, acute fractures of anterior, posterior, and medial rangel of right maxillary sinus with moderate layering hemorrhage and right maxillary sinus, acute nondisplaced fracture right zygomatic arch, and contusions at the right periorbital lateral cheek. CT chest/abdomen/pelvis revealed right anterior acute third through fifth rib fractures, otherwise no pneumothorax or intra- abdominal trauma, also with hiatal hernia and partially intrathoracic stomach. In the ER, a stroke alert was not called as she was well outside of the target time for thrombolytics. She was given 2 L of normal saline and 2 g of IV magnesium. Hospitalist service was consulted for admission given likely new onset stroke, along with multiple facial and rib fractures although she is not requiring any pain control at this time. Also with new onset atrial fibrillation Principal Diagnosis CVA, acute, left MCA territory Discharge Exam Constitutional and general: No acute distress as such, looks biologic age Head and face: Right raccoon eyebetter Eyes: No scleral icterus, extraocular movements normal Neck: Supple, no JVD Skin/dermatologic/integument: No rash, no purpura Hematologic and lymphatic: pallor +, no petechia Gastrointestinal/abdomen: Nondistended, soft, nonacute Neurologic: Right facial droop, right hemiparesisbetter; dysarthria better Cardiovascular: Heart rhythm irregular, no rub, no murmur, no gallop Respiratory: Chest movements equal, no use of accessory muscles, no adventitious sounds Extremities: No edema, no cyanosis Discharge Data Allergies Allergy/AdvReac Type Severity Reaction Status Date / Time No Known Drug Allergies Allergy Verified 01/24/22 15:42 Consultations 01/24/22 15:17 ED Decision to Admit Stat 01/24/22 16:54 Consult Oromaxillofacial Surgery Routine 01/24/22 21:14 Consult Cardiology Routine Consult Neurology Routine 01/27/22 09:47 Consult Orthopedic Surgery Routine 01/28/22 12:09 Consult General Surgery Routine 01/28/22 12:37 Radiology Transfer Of Images Stat 01/28/22 12:38 Radiology Transfer Of Images Stat Ordered Studies 01/24/22 13:49 CT abd pelvis IV con only Stat CT angio head w con Stat CT angio neck with con Stat CT chest diagnostic w con Stat CT head/brain wo con Stat 01/24/22 13:53 CT facial bones wo con Stat 01/24/22 16:47 MR brain wo/w con Stat 01/27/22 09:46 CT head/brain wo con Urgent Hospital Course (1) Stroke: Likely embolic infarcts secondary to A. fibcontinue Eliquis; continue aspirin and statin; outpatient neurology (2) Atrial fibrillation: Rate controlled but BP drifting upinitiated metoprolol tartrate; continue (3) Elevated troponin: Uncertain etiology; not definitely convinced cardiac etiology; known in skeletal muscle injury as seen herecertainly nothing to suggest ACS (4) Extensive facial fractures: Orofacial maxillary surgery following; conservative management;; per discussion via [place] text antibiotics preventative for about 5-7 daystransitioned to oral Augmentin (5) Orbital floor fracture: Communicated with orofacial maxillary surgery; nothing to be done according to communication; continue antibiotic for additional 5 to 7 days-as above (6) Maxillary sinus fracture: Same as #6 and 7 (7) Vertebral artery stenosis: Aspirin, statin; neurology follow-up; vascular surgery input not recommended yet (8) Diabetes mellitus: sugars reasonableno change; continue current regimen at discharge (9) Diplopia: Long discussion with ophthalmology here and at [facility]; outpatient follow-up; per discussion with facial surgery requested soon (10) Knee pain, left: Orthopedics consulted, note pending but they offered a steroid injection and they declined; will offer oxycodone as needed Plan Follow anemia, mild leukopenia Total Time Total Time Spent Total Time Spent (In Minutes): 35 Discharge Plan Discharge Items Patient Disposition: Transfer Inpatient Rehab Fac Reason For Visit: CVA Discharge Diagnosis: Acute CVA Activity: As commented below Activity Comment: As tolerated Non-emergency contact: Primary Care Provider, Wrist Liner and Neurologist Call non-emergency contact if: your symptoms worsen Follow-up/Referrals: Yo Sebastian MD [Physician] - (Follow-up of newly detected A. fib) Yo Garcia MD [Primary Care Provider] - Don Perez MD [Physician] - [facility] Mauricio Donnelly MD [Physician] - (As soon as possible, orbital fractures without entrapment of muscles; diplopia; within 1 week) Stephen Martines MD [Surgeon] - 02/08/22 2:00 pm Diet: Carb Consistent or DM2, Heart Healthy and Other - See Diet Comment Diet Comment: Texture: Minced and moist Addtl Attending Provider Instructions: Please see an telecommunication systems designer as soon as possible, within a week; Avoid blowing nose Complete blood count, CMP, magnesium, phosphate every Sunday Addtl Iron Handler Provider Instructions: Activities as tolerated to knees. Ice and/or heat PRN arthritis pain. Tylenol as needed for pain. Follow up at [facility] in 7-10 days as scheduled. Pending Studies at Discharge: No Stand-Alone Forms: Medications to Prevent Stroke, My [facility] Skilled Items Patient informed of condition?: Yes DNR: No Discharge Level of Care: Acute rehab Communicable Disease: No Discharge Prognosis: Stable Lines: None Urinary Catheter: No Medications and DC Order Prescriptions: New Eliquis 5 mg tablet 5 mg PO BID Qty: 60 1RF amoxicillin-pot clavulanate 875-125 mg Tablet 1 tab PO BIDM Qty: 7 0RF atorvastatin 40 mg Tablet 40 mg PO QAM Qty: 30 0RF aspirin 81 mg Tablet,Delayed Release (Dr/Ec) 81 mg PO QAM Qty: 30 0RF acetaminophen [Tylenol Extra Strength] 500 mg Tablet 1,000 mg PO Q8H Qty: 10 0RF insulin aspart U-100 [Novolog U-100 Insulin aspart] 100 unit/mL Solution 1 sliding scale dose SC ACHS Qty: 10 0RF Rx Instructions: Blood sugar goal 110-140; correction factor 35 lidocaine 5 % Adhesive Patch,Medicated 1 patch transdermal DAILY@1900 Qty: 15 0RF Rx Instructions: At the site of right third rib and left knee metoprolol tartrate 25 mg Tablet 25 mg PO BID Qty: 60 0RF oxycodone 5 mg tablet 5 mg PO Q6H PRN (Reason: pain (scale score 7-10)) Qty: 14 0RF tramadol 50 mg tablet 50 mg PO Q6H PRN (Reason: pain (scale score 4-6)) Qty: 14 0RF Continued cholecalciferol (vitamin D3) 1,000 unit capsule 3,000 units PO DAILY cyanocobalamin (vitamin B-12) 100 mcg tablet 100 mcg PO DAILY multivitamin,tx-minerals tablet 1 tab PO DAILY calcium carbonate-vitamin D3 [Calcium 600 + D(3)] 600 mg(1,500mg) -400 unit tablet 1 tab PO BID Discontinued glimepiride 1 mg tablet 1 mg PO BID Qty: 180 3RF Discharge Orders: Discharge Order (Routine); Ordered 01/28/22 Ordered By: Richard Shaw Admission Data Admit Date/Time: 01/24/22 16:11 Attending Provider: Richard Shaw Admit Provider: Jessica Burnett Primary Care Provider: Yo Garcia Other Providers: Jessica Burnett ; Anand Holliday ; Yo Sebastian ; Don Perez ; Dean Castro ; [facility] ; [facility] ; [facility] ; [place] ; Stephen Martines ; Mauricio Donnelly Coding Level of Care Code D/C DAY MANAGEMENT >30 MINS Diagnoses Stroke I63.9 Atrial fibrillation I48.91 Elevated troponin R77.8 Extensive facial fractures S02.92XA Orbital floor fracture S02.30XA Maxillary sinus fracture S02.401A Vertebral artery stenosis I65.09 Diabetes mellitus E11.9 Diplopia H53.2 Knee pain, left M25.562
== END 2022-01-28 17:52 | DRG 65 ==
LOC: ED 13:17 → SUATTDRO 16:11 → EDINP 16:11 → 2S 20:56
DX: K44.9 Diaphragmatic hernia without obstruction or gangrene; Y92.009 Unspecified place in unspecified non-institutional (private) residence as the place of occurrence of the external cause; I67.2 Cerebral atherosclerosis; W19.XXXA Unspecified fall, initial encounter; E55.9 Vitamin D deficiency, unspecified; M81.0 Age-related osteoporosis without current pathological fracture; E83.39 Other disorders of phosphorus metabolism; S02.40CA Maxillary fracture, right side, initial encounter for closed fracture; E78.5 Hyperlipidemia, unspecified; I63.412 Cerebral infarction due to embolism of left middle cerebral artery; S80.02XA Contusion of left knee, initial encounter; I48.91 Unspecified atrial fibrillation; S02.31XA Fracture of orbital floor, right side, initial encounter for closed fracture; S02.0XXA Fracture of vault of skull, initial encounter for closed fracture; I65.01 Occlusion and stenosis of right vertebral artery; Z79.84 Long term (current) use of oral hypoglycemic drugs; I10 Essential (primary) hypertension; M62.82 Rhabdomyolysis; G81.91 Hemiplegia, unspecified affecting right dominant side; E11.9 Type 2 diabetes mellitus without complications; R41.4 Neurologic neglect syndrome; R29.810 Facial weakness; R79.89 Other specified abnormal findings of blood chemistry; E83.42 Hypomagnesemia; R47.1 Dysarthria and anarthria; S22.41XA Multiple fractures of ribs, right side, initial encounter for closed fracture